=== PATIENT | female | born 1955 | race Caucasian/White ===

== ENCOUNTER → 2022-05-18 12:51 | Outpatient (BNVA) | payer MEDICARE, BC, SELFPAY | PROVIDERS: Referring Provider Family Medicine; Visit Provider Specialist | DX: R41.3 Other amnesia (principal); F07.81 Postconcussional syndrome; G93.40 Encephalopathy, unspecified | CPT/HCPCS: 99204; 99205 ==

== ENCOUNTER 2022-05-24 17:09 | Emergency (ER) | payer MEDICARE, BC, SELFPAY ==
[2022-05-24 17:20] VITALS: BP 135/86; PULSE 81; RESP 20; TEMP 37; O2SAT 96; BMI 19.3
--- NOTE | 2022-05-24 17:57 | CTR_ITS ---
PROCEDURE INFORMATION: Exam: CT Head Without Contrast Exam date and time: 05/24/2022 6:14 PM Age: 66 years old Clinical indication: Other: Uncontrolled body movement, left side weakness; Additional info: Headache, with uncontrolled body spasms, tremors. HX of concussion in the recent past TECHNIQUE: Imaging protocol: Computed tomography of the head without contrast. Radiation optimization: All CT scans at this facility use at least one of these dose optimization techniques: automated exposure control; mA and/or kV adjustment per patient size (includes targeted exams where dose is matched to clinical indication); or iterative reconstruction. COMPARISON: CT head wo con* [id number] 12/11/2021 4:31 PM RADIATION DOSE METRICS: Total DLP (mGy-cm): 721.48 FINDINGS: Brain: Normal. No hemorrhage. Unremarkable white matter. No mass effect. Cerebral ventricles: No ventriculomegaly. Paranasal sinuses: Visualized sinuses are unremarkable. No fluid levels. Mastoid air cells: Visualized mastoid air cells are well aerated. Bones/joints: Unremarkable. No acute fracture. Soft tissues: Unremarkable. CT/CT head wo con* [id number] IMPRESSION: No acute intracranial abnormality.
--- NOTE | 2022-05-24 17:57 | XRR_ITS ---
PROCEDURE INFORMATION: Exam: XR Chest Exam date and time: 05/24/2022 6:03 PM Age: 66 years old Clinical indication: Other: AMS; Additional info: Dizzy TECHNIQUE: Imaging protocol: Radiologic exam of the chest. Views: 1 view. COMPARISON: No relevant prior studies available. FINDINGS: Lungs: Unremarkable. No consolidation. Pleural spaces: Unremarkable. No pleural effusion. No pneumothorax. Heart/Mediastinum: Unremarkable. No cardiomegaly. Bones/joints: Unremarkable. XR/XR chest 1V portable [id number] IMPRESSION: No acute findings.
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
--- NOTE | 2022-05-24 18:26 | ECG_ITS ---
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 Measurements Intervals [place] Rate: 94 P: 89 MD: 137 QRS: 77 QRSD: 82 T: 79 QT: 338 QTc: 423 Interpretive Statements SINUS RHYTHM RIGHT ATRIAL ENLARGEMENT [0.3mV P-WAVE] POSSIBLE LEFT ATRIAL ENLARGEMENT [-0.1mV P-WAVE IN V1/V2] No previous ECG available for comparison Electronically Signed On 05-24-2022 21:31:01 CDT by Howie Dominguez M.D. [id number]
[2022-05-24] MEDS: sodium chloride 0.9% 1,000 ML 999 ML IV (18:33)
[2022-05-24] MEDS: metoclopramide 5 mg/mL SDV 2 mL 10 MG IVP (18:34)
[2022-05-24] MEDS: diphenhydrAMINE 50 mg/mL SDV 1mL IVP (18:34)
[2022-05-24] MEDS: LORazepam 1 mg Tablet PO (18:41)
[2022-05-24 18:43] LABS: Basophils # 0.1 10^3/uL (0.0-0.1); Basophils % 0.6 %; Eosinophils % 0.4 %; Hematocrit 46.7 % (37.0-47.0); Hemoglobin 15.2 g/dL (11.5-15.3); Lymphocytes # 3.1 10^3/uL (0.8-4.8); Lymphocytes % 27.7 %; Mean Corpuscular HGB Conc 32.5 g/dL (30.0-36.0); Mean Corpuscular Hemoglobin 28.1 pg (28.0-34.0); Mean Corpuscular Volume 86.5 fl (81-99); Mean Platelet Volume 9.5 fL (7.4-10.4); Monocytes # 0.9 10^3/uL (0.2-0.9); Monocytes % 8.2 %; Neutrophils # 6.98 10^3/uL (1.8-7.7); Neutrophils % 62.8 %; Nucleated Red Blood Cells % 0 %; Platelet Count 285 10^3/cmm (130-400); Red Cell Distribution Width 13.4 % (12.1-15.1); White Blood Count 11.1 10^3/uL (4.0-10.0)
--- NOTE | 2022-05-24 18:52 | PC.PHAR ---
PT UNABLE TO VERIFY MEDS DO TO AMS- PATIENT HAS SCRIPTS FOR QUETIAPINE 25MG, 50MG, AND 100MG. UNSURE IF SHE TAKES 25MG OR 50MG DAILY- DOES TAKE 100MG AT BEDTIME. VERIFIED USING EXTERNAL MED LIST DO TO [facility] AND OFFICE BEING CLOSED
[2022-05-24 18:55] LABS: INR 0.87 (0.8-1.2)
--- NOTE | 2022-05-24 19:00 | PC.NURSE ---
REPORT GIVEN TO [facility].
--- NOTE | 2022-05-24 19:05 | PC.NURSE ---
Report from ELA Thomas. Pt resting quietly. No needs at this time.
[2022-05-24 19:06] VITALS: BP 126/68; PULSE 75; RESP 16; TEMP 36.6; O2SAT 94
[2022-05-24 19:06] LABS: Troponin(5th) Baseline 11 ng/L (0-10)
[2022-05-24 19:07] LABS: Alanine Aminotransferase 8 U/L (0-33); Albumin Level 4.9 g/dL (3.5-5.2); Alkaline Phosphatase 185 U/L (35-105); Anion Gap 22.5 (5-19); Aspartate Amino Transferase 17 U/L (0-32); Blood Urea Nitrogen 23 mg/dL (8-23); Calcium 11.6 mg/dL (8.5-10.5); Carbon Dioxide 25 mmol/L (22-29); Chloride 96 mmol/L (98-107); Globulin 3.6 g/dL (1.3-4.6); Glomerular Filtration Rate 32.2 mL/min (90-130); Glucose 111 mg/dL (65-115); Osmolality Calculated 292 mOsm/kg (285-295); Potassium 4.5 mmol/L (3.5-5.1); Sodium 139 mmol/L (136-145); Total Bilirubin 0.4 mg/dL (0.15-1.2); Total Protein 8.5 g/dL (6.6-8.7)
== END 2022-05-24 20:09 | disposition home or self-care (01) ==
PROVIDERS: Emergency Provider Emergency Medicine; PCP Specialist
DX: R51.9 Headache, unspecified (principal); F07.81 Postconcussional syndrome
CPT/HCPCS: 70450; 71045; 80053; 84484; 85025; 85610; 93005; 96361; 96374; 96375; 99285; J1200; J2765; J7030

== ENCOUNTER 2022-05-29 16:13 | Emergency (ER) | payer MEDICARE, BC, SELFPAY ==
[2022-05-29 17:03] VITALS: BP 130/86; PULSE 82; RESP 16; TEMP 36.8; O2SAT 99; BMI 16.6
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
[2022-05-29] MEDS: lactated ringers 1,000 ML 999 ML IV (20:27)
[2022-05-29] MEDS: ketorolac 30 mg/mL INJ 15 MG IVP (20:30)
[2022-05-29] MEDS: diphenhydrAMINE 50 mg/mL SDV 1mL 25 MG IVP (20:30)
[2022-05-29] MEDS: metoclopramide 5 mg/mL SDV 2 mL 10 MG IVP (20:31)
[2022-05-29 20:40] LABS: Basophils # 0.1 10^3/uL (0.0-0.1); Basophils % 0.7 %; Eosinophils # 0.1 10^3/uL (0.0-0.8); Eosinophils % 1.7 %; Hematocrit 46.5 % (37.0-47.0); Hemoglobin 14.9 g/dL (11.5-15.3); Lymphocytes # 2.5 10^3/uL (0.8-4.8); Lymphocytes % 30.5 %; Mean Corpuscular Hemoglobin 28.2 pg (28.0-34.0); Mean Corpuscular Volume 87.9 fl (81-99); Mean Platelet Volume 9.1 fL (7.4-10.4); Monocytes # 0.7 10^3/uL (0.2-0.9); Monocytes % 8.1 %; Neutrophils # 4.86 10^3/uL (1.8-7.7); Neutrophils % 58.9 %; Nucleated Red Blood Cells % 0 %; Platelet Count 301 10^3/cmm (130-400); Red Blood Count 5.29 10^6/uL (4.1-5.3); Red Cell Distribution Width 13.9 % (12.1-15.1); White Blood Count 8.3 10^3/uL (4.0-10.0)
[2022-05-29 20:54] LABS: Erythrocyte Sedimentation Rate 14 mm/hr (0-15)
[2022-05-29 21:04] LABS: Alanine Aminotransferase 9 U/L (0-33); Albumin Level 4.4 g/dL (3.5-5.2); Alkaline Phosphatase 142 U/L (35-105); Anion Gap 17.1 (5-19); Aspartate Amino Transferase 21 U/L (0-32); Blood Urea Nitrogen 27 mg/dL (8-23); Calcium 9.7 mg/dL (8.5-10.5); Carbon Dioxide 26 mmol/L (22-29); Chloride 99 mmol/L (98-107); Globulin 3.2 g/dL (1.3-4.6); Glomerular Filtration Rate 37.5 mL/min (90-130); Glucose 92 mg/dL (65-115); Magnesium 2.1 mg/dL (1.7-2.3); Osmolality Calculated 291 mOsm/kg (285-295); Potassium 4.1 mmol/L (3.5-5.1); Sodium 138 mmol/L (136-145); Total Bilirubin 0.3 mg/dL (0.15-1.2); Total Protein 7.6 g/dL (6.6-8.7)
[2022-05-29 21:07] VITALS: BP 158/59; PULSE 70; RESP 22; O2SAT 26
[2022-05-29 21:30] VITALS: BP 171/64; PULSE 66; RESP 20; O2SAT 100
[2022-05-29 21:36] LABS: Add Urine Microscopic? NO; Charge for UA Resulting for Rev
[2022-05-29 21:45] LABS: Bilirubin Urine Neg (Negative); Blood Urine Neg (Negative); Glucose Urine UA Norm (Normal); Ketones Urine Negative (Negative); Leukocyte Esterase Urine Negative (Negative); Nitrate Urine Negative (Negative); Protein Urine Neg (Negative); Specific Gravity, Urine 1.015 (1.005-1.030); Urine Appearance Clear (CLEAR); Urine Color Yellow (Yellow); Urobilinogen Urine Neg (Negative); pH Urine 6 (5-7)
[2022-05-29 22:27] VITALS: BP 171/64; PULSE 66; RESP 20; O2SAT 100
== END 2022-05-29 22:30 | disposition home or self-care (01) ==
PROVIDERS: Emergency Provider Emergency Medicine; PCP Specialist
DX: R56.9 Unspecified convulsions (principal); R51.9 Headache, unspecified
CPT/HCPCS: 80053; 81003; 83735; 85025; 85651; 86140; 96374; 96375; 99284; J1200; J1885; J2765

== ENCOUNTER → 2022-06-07 09:31 | Outpatient (BNVA) | payer MEDICARE, BC, SELFPAY | PROVIDERS: PCP Family Medicine; Referring Provider Specialist; Visit Provider Specialist | DX: G93.40 Encephalopathy, unspecified (principal); F07.81 Postconcussional syndrome | CPT/HCPCS: 95816 ==

== ENCOUNTER → 2022-06-22 09:47 | Outpatient (BNVA) | payer MEDICARE, BC, SELFPAY | PROVIDERS: PCP Family Medicine; Visit Provider Specialist | DX: F07.81 Postconcussional syndrome (principal); F03.90 Unspecified dementia, unspecified severity, without behavioral disturbance, psychotic disturbance, mood disturbance, and anxiety | CPT/HCPCS: 96116; 99214; 99215 ==

== ENCOUNTER 2022-07-12 10:15 | Outpatient (CLI) | payer MEDICARE, BC, SELFPAY ==
--- NOTE | 2022-07-12 11:00 | MR_ITS ---
WS: [id number] MRI BRAIN WITH AND WITHOUT CONTRAST HISTORY: R41.9 - Unspecified symptoms and signs involving cognitive decline. Diminished reflexes. COMPARISON: CT head 05/24/2022 TECHNIQUE: Multiplanar imaging performed through the brain with MultiHance 10 ml's IV. No acute infarcts are seen. Desai-white matter differentiation is well preserved. Numerous T2 and FLAI R signal hyperintensities in the subcortical white matter. These involve the frontal, temporal and pa rietal lobes. No prior infarct. No volume loss in the cerebellum or T2-weighted lesions. No susceptibility artifacts or prior lacunar infarcts. Ventricles and extra-axial spaces are normal. Clivus and pituitary gland are normal. Visualized posterior fossa and brainstem are also normal. Postcontrast images are negative for masses or vascular malformations. Small caliber but patent RIGHT vertebral artery. Dural venous sinuses are normal. Paranasal sinuses: Well aerated with no significant disease. Mastoid air cells: Normal. Calvarium and scalp: Normal. MR/MR head wo/w con [id number] IMPRESSION: 1. No acute infarct or hemorrhage. 2. Mild to moderate T2 and FLAIR signal hyperintensities in the subcortical wh ite matter. Most typical distribution of small vessel ischemic disease. 3. No infarct. 4. No enhancing mass or vascular malformation.
[2022-07-12] MEDS: gadobenate dimeglumine 20 mL vial IV (11:32)
== END 2022-07-12 10:16 | disposition home or self-care (01) ==
LOC: RAD 10:16
PROVIDERS: PCP Family Medicine; Visit Provider Specialist
DX: R41.3 Other amnesia (principal); R41.9 Unspecified symptoms and signs involving cognitive functions and awareness; R93.0 Abnormal findings on diagnostic imaging of skull and head, not elsewhere classified
CPT/HCPCS: 70553

== ENCOUNTER 2022-10-17 12:21 | Inpatient (IN) | payer MEDICARE, BC, SELFPAY ==
[2022-10-17] VITALS (7 sets, daily range): BP systolic 94–163; BP diastolic 60–79; PULSE 75–88; RESP 15–16; TEMP 36.6–36.9; O2SAT 94–100; BMI 19.3
--- NOTE | 2022-10-17 14:12 | CT_ITS ---
WS: [id number] CT HEAD TECHNIQUE: Noncontrast CT of the head obtained from the skullbase to the vertex. CLINICAL INFORMATION: fall, laceration, ams COMPARISON: CT May 24, 2022. MRI July 12, 2022 DLP: 924.[address] scans at [facility] use at least one of these dose optimization techniques: automated e xposure control; mA and/or kV adjustment per patient size (includes targeted exams where dose is matc hed to clinical indication); or iterative reconstruction. FINDINGS: No evidence of intracranial hemorrhage or mass effect. Ventricular system and basal cisterns are gomez nt. Mild small vessel changes with moderate parenchymal volume loss. No extra-axial fluid collections . Vascular calcification. Fluid in the LEFT maxillary sinus. Mastoid air cells well aerated. Soft tissue laceration RIGHT front oparietal. No underlying calvarial fractures. CT/CT head wo con* [id number] IMPRESSION: 1. No evidence of intracranial hemorrhage or mass effect. 2. Mild small vessel changes. Moderate parenchymal volume loss. 3. LEFT maxillary sinusitis. 4. No acute intracranial findings.
--- NOTE | 2022-10-17 14:13 | XR_ITS ---
WS: [id number] Exam: XR chest 1V portable [id number] Date/Time of Exam: 10/17/2022 2:17 PM Reason For Exam: ams Comparison 05/24/2022. The lungs are clear and fully inflated. Normal cardiomediastinal silhouette. Small hiatal hernia. No pleural effusions. Unremarkable regional bony elements. XR/XR chest 1V portable [id number] IMPRESSION: 1. No acute cardiopulmonary process.
[2022-10-17 15:13] LABS: Basophils % 0.3 %; Eosinophils % 0.1 %; Hematocrit 37.3 % (37.0-47.0); Hemoglobin 11.9 g/dL (11.5-15.3); Lymphocytes # 1.4 10^3/uL (0.8-4.8); Lymphocytes % 13.9 %; Mean Corpuscular HGB Conc 31.9 g/dL (30.0-36.0); Mean Corpuscular Hemoglobin 32.1 pg (28.0-34.0); Mean Corpuscular Volume 100.5 fl (81-99); Mean Platelet Volume 8.5 fL (7.4-10.4); Monocytes # 0.9 10^3/uL (0.2-0.9); Monocytes % 8.5 %; Neutrophils # 7.91 10^3/uL (1.8-7.7); Neutrophils % 76.5 %; Nucleated Red Blood Cells % 0 %; Platelet Count 303 10^3/cmm (130-400); Red Blood Count 3.71 10^6/uL (4.1-5.3); Red Cell Distribution Width 13.4 % (12.1-15.1); White Blood Count 10.3 10^3/uL (4.0-10.0)
[2022-10-17 15:33] LABS: Alanine Aminotransferase 18 U/L (0-33); Albumin Level 4.7 g/dL (3.5-5.2); Alkaline Phosphatase 120 U/L (35-105); Anion Gap 22.1 (5-19); Aspartate Amino Transferase 36 U/L (0-32); Blood Urea Nitrogen 67 mg/dL (8-23); Calcium 9.6 mg/dL (8.5-10.5); Carbon Dioxide 22 mmol/L (22-29); Chloride 89 mmol/L (98-107); Glomerular Filtration Rate 9.5 mL/min (90-130); Glucose 114 mg/dL (65-115); Osmolality Calculated 288 mOsm/kg (285-295); Potassium 4.1 mmol/L (3.5-5.1); Sodium 129 mmol/L (136-145); Total Bilirubin 0.3 mg/dL (0.15-1.2); Total Protein 7.7 g/dL (6.6-8.7)
--- NOTE | 2022-10-17 15:36 | ECG_ITS ---
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 Measurements Intervals [place] Rate: 72 P: 82 IA: 156 QRS: 64 QRSD: 91 T: 53 QT: 400 QTc: 439 Interpretive Statements SINUS RHYTHM Compared to ECG 05/24/2022 18:26:59 Atrial abnormality no longer present Electronically Signed On 10-18-2022 7:40:20 HSE COORDINATOR by Howie Dominguez M.D. [id number]
--- NOTE | 2022-10-17 15:37 | ED_ITS ---
HPI - Altered Mental Status General: Chief Complaint: Altered Mental Status Stated Complaint: weakness/head lac Time Seen by Provider: 10/17/22 15:31 [facility]: Medical History Postconcussive syndrome Social History Smoking and tobacco status: never smoked Course Vital Signs: Vital signs: Vital Signs Temperature 97.9 F 10/17/22 12:51 Pulse Rate 75 10/17/22 12:51 Respiratory Rate 16 10/17/22 12:51 Blood Pressure 163/69 10/17/22 12:51 Pulse Oximetry 96 10/17/22 12:51 Oxygen Delivery Me thod 10/17/22 12:51 MDM - Altered Mental Status Lab Data 10/17/22 15:04 10/17/22 15:[address] 10/17/22 14:12 IMPRESSION: 1. No evidence of intracranial hemorrhage or mass effect. 2. Mild small vessel changes. Moderate parenchymal volume loss. 3. LEFT maxillary sinusitis. 4. No acute intracranial findings. Chest X-Ray 10/17/22 14:13 IMPRESSION: 1. No acute cardiopulmonary process. Laboratory Results WBC 10.3 10^3/uL (4.0-10.0) H 10/17/22 15:04 RBC 3.71 10^6/uL (4.1-5.3) L 10/17/22 15:04 Hgb 11.9 g/dL (11.5-15.3) 10/17/22 15:04 Hct 37.3 % (37.0-47.0) 10/17/22 15:04 MCV 100.5 fl (81-99) H 10/17/22 15:04 MCH 32.1 pg (28.0-34.0) 10/17/22 15:04 MCHC 31.9 g/dL (30.0-36.0) 10/17/22 15:04 RDW 13.4 % (12.1-15.1) 10/17/22 15:04 Plt Count 303 10^3/cmm (130-400) 10/17/22 15:04 MPV 8.5 fL (7.4-10.4) 10/17/22 15:04 Neut % (Auto) 76.5 % 10/17/22 15:04 Lymph % (Auto) 13.9 % 10/17/22 15:04 [place] % (Auto) 8.5 % 10/17/22 15:04 Eos % (Auto) 0.1 % 10/17/22 15:04 Baso % (Auto) 0.3 % 10/17/22 15:04 Neut # (Auto) 7.91 10^3/uL (1.8-7.7) H 10/17/22 15:04 Lymph # (Auto) 1.4 10^3/uL (0.8-4.8) 10/17/22 15:04 [place] # (Auto) 0.9 10^3/uL (0.2-0.9) 10/17/22 15:04 Eos # (Auto) 0.0 10^3/uL (0.0-0.8) 10/17/22 15:04 Baso # (Auto) 0.0 10^3/uL (0.0-0.1) 10/17/22 15:04 Nucleated RBC % (auto) 0 % 10/17/22 15:04 Nucleated RBCs # 0.0 /100WBC 10/17/22 15:04 Sodium 129 mmol/L (136-145) L 10/17/22 15:04 Potassium 4.1 mmol/L (3.5-5.1) 10/17/22 15:04 Chloride 89 mmol/L (98-107) L 10/17/22 15:04 Carbon Dioxide 22 mmol/L (22-29) 10/17/22 15:04 Anion Gap 22.1 (5-19) H 10/17/22 15:04 BUN 67 mg/dL (8-23) H 10/17/22 15:04 Creatinine 4.6 mg/dL (0.5-0.9) H 10/17/22 15:04 GFR Calculation 9.5 mL/min (90-130) L 10/17/22 15:04 Glucose 114 mg/dL (65-115) 10/17/22 15:04 Calculated Osmolality 288 mOsm/kg (285-295) 10/17/22 15:04 Calcium 9.6 mg/dL (8.5-10.5) 10/17/22 15:04 Total Bilirubin 0.3 mg/dL (0.15-1.2) 10/17/22 15:04 AST 36 U/L (0-32) H 10/17/22 15:04 ALT 18 U/L (0-33) 10/17/22 15:04 Alkaline Phosphatase 120 U/L (35-105) H 10/17/22 15:04 Total Protein 7.7 g/dL (6.6-8.7) 10/17/22 15:04 Albumin 4.7 g/dL (3.5-5.2) 10/17/22 15:04 Globulin 3.0 g/dL (1.3-4.6) 10/17/22 15:04 Discharge Plan Discharge Condition: Stable Prescriptions: No Action cetirizine 10 mg capsule 10 mg PO DAILY PRN metoprolol succinate 50 mg tablet extended release 24 hr 50 mg PO DAILY quetiapine [Seroquel] 100 mg tablet 100 mg PO BEDTIME alprazolam [Xanax] 0.5 mg tablet 0.5 mg PO DAILY donepezil 10 mg tablet 10 mg PO BEDTIME spironolacton-hydrochlorothiaz 25-25 mg tablet 1 tab PO DAILY hydroxyzine pamoate 50 mg capsule 50 mg PO Q6H PRN (Reason: Anxiety) levothyroxine 75 mcg tablet 75 mcg PO DAILY cyanocobalamin (vitamin B-12) 1,000 mcg/mL solution 1,000 mcg SUBCUT Q30D Premarin 0.625 mg tablet 0.625 mg PO DAILY folic acid 1 mg tablet 1 mg PO DAILY zaleplon 5 mg capsule 5 mg PO BEDTIME PRN (Reason: Sleep) Lamictal 200 mg tablet 200 mg PO BID Qty: 60 0RF Referrals: Cheikh Obando MD [Primary Care Provider] - Coding Level of Care Code ED Bike Shop Manager for Dilshad Schmidt
--- NOTE | 2022-10-17 15:43 | W.ED.GENADLT ---
HPI - General Adult General: Chief complaint: Altered Mental Status Stated complaint: weakness/head lac Time Seen by Provider: 10/17/22 15:31 Source: patient Mode of arrival: ambulatory History of Present Illness: 59-year-old female presents emergency room altered mental status. Patient is agitated and irritable family states she had a close head injury a year ago where the door hit her in the head when it swung open and she is still trying to recover from this head injury. She fell sometime last week unsure of the day and then fell early again this morning. She has a wound on her head but it is caked in blood and initially I am unable to evaluate it because of the dried blood coating the hair. Patient states she was at [facility] last week and they did not do an evaluation on the family at the bedside disputes this. Reviewed Dr. Perkins's notes he thinks he may have a frontotemporal dementia. EEG done previously was unremarkable. Onset (ago): day(s) Location: head Severity: moderate Relieving factors: none Exacerbating factors: none Associated symptoms: Reports confusion; Deny chest pain, cough, diaphoresis, decreased appetite, dyspnea, fevers/chills, headache(s), malaise, nausea, rash, palpitations, seizures, short of breath, syncope, vomiting or weakness Treatments prior to arrival: none Review of Systems Const: Denies: fever(s), chills, fatigue, malaise or diaphoresis ENMT: Denies: throat pain, ear or mastoid pain, nasal discharge or nasal congestion Card: Denies: chest pain, palpitations or syncope Resp: Denies: dyspnea GI: Denies: abdominal pain, nausea or vomiting : Denies: flank pain, difficulty voiding, dysuria, urinary frequency or urinary urgency Skin/Breast: Denies: rash Neuro: Reports: confusion; Denies: headache(s) PFSH ED PFSH: Medical History Postconcussive syndrome Social History Smoking and tobacco status: never smoked Physical Exam Const: GENERAL APPEARANCE: cooperative and comfortable ORIENTATION/CONSCIOUSNESS: Yes awake HENMT: COMMON NORMALS: normocephalic, hearing grossly normal bilaterally, external ears normal, EAC's normal, TM's normal bilaterally, Normal nasal mucous membranes and turbinates present, moist oral mucous membranes and oropharynx normal HEAD & SCALP: normocephalic NOSE: Normal nasal mucous membranes and turbinates present EXTERNAL EAR: Yes external ears normal EXTERNAL AUDITORY CANAL: EAC's normal TYMPANIC MEMBRANE: TM's normal bilaterally Neck/C-Spine: COMMON NORMALS: full ROM, no lymphadenopathy, supple and no JVD Resp: COMMON NORMALS: normal respiratory effort, No retractions, No use of accessory muscles and clear to auscultation bilaterally AUSCULTATION: clear to auscultation bilaterally Cardio: COMMON NORMALS: no JVD, regular rate, regular rhythm and No murmurs present (Cardio) RATE: regular rate RHYTHM: regular rhythm GI: COMMON NORMALS: Soft to palpation and No hepatosplenomegaly present AUSCULTATION: Yes normoactive bowel sounds PALPATION: Yes Soft to palpation, No Tenderness to palpation present (GI), No Guarding due to palpation present (GI) and Yes No hepatosplenomegaly present Extremity: COMMON NORMALS: normal to inspection, capillary refill normal, no clubbing, cyanosis or edema, no calf tenderness and no pedal edema Skin: COMMON NORMALS: no rashes or lesions noted GENERAL SKIN EXAM: no rashes or lesions noted Procedures Laceration Laceration 1: Site: scalp Side (If applicable): right Size (cm): 12.5 Description: linear Depth: simple, single layer Pre-repair: irrigated extensively Skin layer closed with: other (Stapled) Course Vital Signs: Vital signs: Vital Signs Temperature 97.9 F 10/17/22 12:51 Pulse Rate 81 10/17/22 16:00 Respiratory Rate 16 10/17/22 16:00 Blood Pressure 151/79 10/17/22 16:00 Pulse Oximetry 98 10/17/22 16:00 Oxygen Delivery Me thod 10/17/22 12:51 [facility] - General Adult Medical Decision Making Head laceration cleaned irrigated and stapled loosely. I am not sure how this is it may be as little as a day or 2 or several days. It does not appear infected at this time and has not any epithelization at the edges so I suspect it is not more than 1 to 2 days. The vianney were placed somewhat loosely to allow for any drainage. Recommend that she be on Keflex p.o. 3 times daily for the next 5 days because of the delayed closure. Patient also has an acute kidney injury and altered mental status. She is mildly hyponatremic as well will admit discussed with hospitalist. She has a mild anion gap of 22.2 Medical Records I reviewed the patient's medical records. Lab Data I reviewed the patient's lab results. 10/17/22 15:04 10/17/22 15:[address] 10/17/22 14:12 IMPRESSION: 1. No evidence of intracranial hemorrhage or mass effect. 2. Mild small vessel changes. Moderate parenchymal volume loss. 3. LEFT maxillary sinusitis. 4. No acute intracranial findings. Chest X-Ray 10/17/22 14:13 IMPRESSION: 1. No acute cardiopulmonary process. Laboratory Results WBC 10.3 10^3/uL (4.0-10.0) H 10/17/22 15:04 RBC 3.71 10^6/uL (4.1-5.3) L 10/17/22 15:04 Hgb 11.9 g/dL (11.5-15.3) 10/17/22 15:04 Hct 37.3 % (37.0-47.0) 10/17/22 15:04 MCV 100.5 fl (81-99) H 10/17/22 15:04 MCH 32.1 pg (28.0-34.0) 10/17/22 15:04 MCHC 31.9 g/dL (30.0-36.0) 10/17/22 15:04 RDW 13.4 % (12.1-15.1) 10/17/22 15:04 Plt Count 303 10^3/cmm (130-400) 10/17/22 15:04 MPV 8.5 fL (7.4-10.4) 10/17/22 15:04 Neut % (Auto) 76.5 % 10/17/22 15:04 Lymph % (Auto) 13.9 % 10/17/22 15:04 [place] % (Auto) 8.5 % 10/17/22 15:04 Eos % (Auto) 0.1 % 10/17/22 15:04 Baso % (Auto) 0.3 % 10/17/22 15:04 Neut # (Auto) 7.91 10^3/uL (1.8-7.7) H 10/17/22 15:04 Lymph # (Auto) 1.4 10^3/uL (0.8-4.8) 10/17/22 15:04 [place] # (Auto) 0.9 10^3/uL (0.2-0.9) 10/17/22 15:04 Eos # (Auto) 0.0 10^3/uL (0.0-0.8) 10/17/22 15:04 Baso # (Auto) 0.0 10^3/uL (0.0-0.1) 10/17/22 15:04 Nucleated RBC % (auto) 0 % 10/17/22 15:04 Nucleated RBCs # 0.0 /100WBC 10/17/22 15:04 Sodium 129 mmol/L (136-145) L 10/17/22 15:04 Potassium 4.1 mmol/L (3.5-5.1) 10/17/22 15:04 Chloride 89 mmol/L (98-107) L 10/17/22 15:04 Carbon Dioxide 22 mmol/L (22-29) 10/17/22 15:04 Anion Gap 22.1 (5-19) H 10/17/22 15:04 BUN 67 mg/dL (8-23) H 10/17/22 15:04 Creatinine 4.6 mg/dL (0.5-0.9) H 10/17/22 15:04 GFR Calculation 9.5 mL/min (90-130) L 10/17/22 15:04 Glucose 114 mg/dL (65-115) 10/17/22 15:04 Calculated Osmolality 288 mOsm/kg (285-295) 10/17/22 15:04 Calcium 9.6 mg/dL (8.5-10.5) 10/17/22 15:04 Total Bilirubin 0.3 mg/dL (0.15-1.2) 10/17/22 15:04 AST 36 U/L (0-32) H 10/17/22 15:04 ALT 18 U/L (0-33) 10/17/22 15:04 Alkaline Phosphatase 120 U/L (35-105) H 10/17/22 15:04 Total Protein 7.7 g/dL (6.6-8.7) 10/17/22 15:04 Albumin 4.7 g/dL (3.5-5.2) 10/17/22 15:04 Globulin 3.0 g/dL (1.3-4.6) 10/17/22 15:04 Urine Color Yellow (Yellow) 10/17/22 15:30 Urine Appearance Clear (CLEAR) 10/17/22 15:30 Urine pH 5 (5-7) 10/17/22 15:30 Ur Specific [place] 1.025 (1.005-1.030) 10/17/22 15:30 Urine Protein Trace (Negative) 10/17/22 15:30 Urine Glucose (UA) Norm (Normal) 10/17/22 15:30 Urine Ketones 1+ (Negative) H 10/17/22 15:30 Urine Blood 2+ (Negative) H 10/17/22 15:30 Urine Nitrate Negative (Negative) 10/17/22 15:30 Urine Bilirubin 1+ (Negative) H 10/17/22 15:30 Urine Urobilinogen Norm mg/dL (Negative) 10/17/22 15:30 Ur Leukocyte Esterase Negative (Negative) 10/17/22 15:30 Urine RBC 0-4 /hpf (0-2) H 10/17/22 15:30 Urine WBC 5-10 /hpf (0-5) H 10/17/22 15:30 Ur Squamous Epith Cells 10-15 /hpf (0-5) H 10/17/22 15:30 Amorphous Sediment Not Reportable 10/17/22 15:30 Urine Bacteria 2+ /hpf (NONE) H 10/17/22 15:30 Discharge Plan Discharge Patient Disposition: Admitted As Inpatient Clinical Impression: Acute kidney injury, Frontotemporal dementia, Falls frequently, Acute hyponatremia, Laceration of head Condition: Stable Prescriptions: No Action cetirizine 10 mg capsule 10 mg PO DAILY PRN metoprolol succinate 50 mg tablet extended release 24 hr 50 mg PO DAILY quetiapine [Seroquel] 100 mg tablet 100 mg PO BEDTIME alprazolam [Xanax] 0.5 mg tablet 0.5 mg PO DAILY donepezil 10 mg tablet 10 mg PO BEDTIME spironolacton-hydrochlorothiaz 25-25 mg tablet 1 tab PO DAILY hydroxyzine pamoate 50 mg capsule 50 mg PO Q6H PRN (Reason: Anxiety) levothyroxine 75 mcg tablet 75 mcg PO DAILY cyanocobalamin (vitamin B-12) 1,000 mcg/mL solution 1,000 mcg SUBCUT Q30D Premarin 0.625 mg tablet 0.625 mg PO DAILY folic acid 1 mg tablet 1 mg PO DAILY zaleplon 5 mg capsule 5 mg PO BEDTIME PRN (Reason: Sleep) Lamictal 200 mg tablet 200 mg PO BID Qty: 60 0RF Referrals: Cheikh Obando MD [Primary Care Provider] - Coding Level of Care Code ED Extended Insurance Clerk for Chg Fwd Exam Comprehensive
[2022-10-17] MEDS: sodium chloride 0.9% 1,000 ML 999 ML IV ×2 (16:03→17:39)
[2022-10-17 16:07] LABS: Bilirubin Urine 1+ (Negative); Blood Urine 2+ (Negative); Glucose Urine UA Norm (Normal); Ketones Urine 1+ (Negative); Nitrate Urine Negative (Negative); Protein Urine Trace (Negative); Specific Gravity, Urine 1.025 (1.005-1.030); Urine Appearance Clear (CLEAR); Urine Color Yellow (Yellow); pH Urine 5 (5-7)
[2022-10-17 16:08] LABS: Add Urine Microscopic? YES; Leukocyte Esterase Urine Negative (Negative); Urobilinogen Urine Norm (Negative)
[2022-10-17 16:09] LABS: Add Urine Culture? No; Bacteria Urine 2+ /hpf; RBC Urine 0-4 /hpf (0-2)
--- NOTE | 2022-10-17 16:22 | PC.NURSE ---
HEAD LACERATION MEASURING APPROX 5CM BY 1CM CLEANED. DR. COELLO APPLIED 5 LAUREN TO WOUND.
--- NOTE | 2022-10-17 17:10 | USR_ITS ---
PROCEDURE INFORMATION: Exam: US Duplex Bilateral Extracranial Arteries, Carotid Arteries Exam date and time: 10/17/2022 5:46 PM Age: 67 years old Clinical indication: Altered mental status/memory loss and syncope and collapse; Confusion or disorientation; Patient HX: Long-term smoker, continues smoking. Fell 2021, striking her head, caused brain injury. She fell again today, ripping open scalp vianney from a fall last week. TECHNIQUE: Imaging protocol: Real-time Duplex ultrasound scan of the bilateral carotid and vertebral arteries combining montemayor scale, color Doppler and spectral waveform analysis. Bilateral exam. Exam focused on the carotid arteries. COMPARISON: CT head wo con* [id number] 10/17/2022 2:45 PM FINDINGS: Right common carotid artery: Mild plaque. No occlusion or stenosis. Waveforms are normal. Right internal carotid artery: Mild plaque. No occlusion or stenosis. Waveforms are normal. Right ICA/CCA ratio: Within normal limits. Right external carotid artery: No stenosis in the origin. Right vertebral artery: Unremarkable. Antegrade flow. Left common carotid artery: Mild plaque. No occlusion or stenosis. Waveforms are normal. Left internal carotid artery: Mild plaque. No occlusion or stenosis. Waveforms are normal. Left ICA/CCA ratio: Within normal limits. Left external carotid artery: No stenosis in the origin. Left vertebral artery: Unremarkable. Antegrade flow. Other findings: There is mild bilateral carotid bulb plaque. US/CV carotid duplex BI* [id number] IMPRESSION: 1. Less than 50% bilateral ICA stenosis (Mild stenosis). 2. Vertebral have antegrade flow. REFERENCES: SRU CRITERIA. The degree of internal carotid artery stenosis is based on criteria defined by the Society of Radiologists in Ultrasound (SRU). Normal is no stenosis. Mild is less than 50% stenosis. Moderate is 50-69% stenosis. Severe is greater than 69% stenosis to near occlusion. Near occlusion is a markedly narrowed lumen. Total occlusion is no detectable patent lumen.
--- NOTE | 2022-10-17 17:10 | USR_ITS ---
PROCEDURE INFORMATION: Exam: US Retroperitoneal; Complete; Kidneys and Bladder Exam date and time: 10/17/2022 7:02 PM Age: 67 years old Clinical indication: Other: Acute kidney injury; Prior surgery; Surgery date: 6+ months; Patient HX: Rra stenting 2011. Note that a renal doppler is also ordered, but patient is shaking so violently that i cannot do that exam at this time. ; Additional info: Shahzad TECHNIQUE: Imaging protocol: Real-time ultrasound of the retroperitoneum with image documentation. Complete exam focused on the kidneys and bladder. COMPARISON: No relevant prior studies available. FINDINGS: Right kidney: The right upper kidney shows a small 1 cm superolateral cyst. No solid renal mass or hydronephrosis. The right kidney is normal size. Left kidney: No solid renal mass or hydronephrosis is identified. The left kidney is normal size. Urinary bladder: The bladder prevoid volume is 163 cc. The postvoid volume is 26 cc. Left jet seen in bladder, right jet not seen in bladder. US/US renal BI* [id number] IMPRESSION: 1. No solid renal mass or hydronephrosis. 2. Small bladder postvoid residual.
--- NOTE | 2022-10-17 17:10 | USCV_ITS ---
Lluvia Pagan Age: 67 Gender: F : 1955 Exam Date: 10/17/2022 18:26 Ordering Phys: Herbert Crews MD Technologist: BREEZY [place] [facility] [place]: altered mental status, s/p fall with brain injury 2021. Fell again today, ripping out scalp vianney from fall last week. History of LAD cardiac stenting and RRA stenting 2011. Long-term smoker, continues smoking. Denies DM. BP: 160 / 72 HR: 185 Rhythm: Sinus Technical Quality: Adequate MEASUREMENTS (Male / Female) Normal Values 2D ECHO LV Diastolic Diameter PLAX 3.0 cm 4.2 - 5.9 / 3.9 - 5.3 cm LV Systolic Diameter PLAX 1.9 cm IVS Diastolic Thickness 1.4 cm 0.6 - 1.0 / 0.6 - 0.9 cm IVS Systolic Thickness 1.7 cm LVPW Diastolic Thickness 1.1 cm 0.6 - 1.0 / 0.6 - 0.9 cm LVPW Systolic Thickness 1.3 cm LVOT Diameter 1.6 cm LV Ejection Fraction 2D Teich 65.8 % LV Ejection Fraction MOD 2C 64.1 % LV Ejection Fraction 2C AL 67.0 % LA Diameter 2.7 cm LA Width 3.1 cm LA Height 4.2 cm RA Width 2.3 cm RA Height 3.3 cm Aorta at Sinotubular Diameter 2.5 cm IVC Diameter 1.7 cm M-MODE Aortic Annulus Diameter 2.7 cm LA Ao Ratio MM 1.0 MV E Point Septal Separation 0.2 cm DOPPLER AV Peak Velocity 99.0 cm/s LVOT Peak Velocity 94.0 cm/s AV Area Cont Eq vti 2.1 cm squared AV Area Cont Eq pk 1.9 cm squared MV Area PHT 4.1 cm squared Mitral E to A Ratio 1.2 MV E' Velocity 70.0 cm/s Mitral E to MV E' Ratio 10.6 Mitral E to LV E' Lateral Ratio 8.8 Mitral E to LV E' Septal Ratio 13.2 TR Peak Velocity 255.5 cm/s TR Peak Gradient 26.1 mmHg TV Peak E Velocity 91.0 cm/s Right Atrial Pressure 5.0 mmHg Pulmonary Artery Systolic Pressu 31.1 mmHg PV Peak Velocity 78.0 cm/s RV Acceleration Time 0.1 s RV Ejection Time 0.4 s RV AcT/ET 0.3 FINDINGS Left Ventricle Left ventricle is normal in size. LV systolic function is normal with EF 55 to 60%. No regional wall motion abnormalities are seen. Right Ventricle LV size and function Right Atrium Normal in size Left Atrium Normal in size Mitral Valve Structurally normal mitral valve. Mild mitral regurgitation. Aortic Valve Aortic valve is thickened. No significant stenosis or regurgitation. Tricuspid Valve Mild tricuspid regurgitation. Pulmonary artery systolic pressure is normal Pulmonic Valve Not well visualized. Pericardium Normal Aorta Normal in size IVC Appears to be normal CONCLUSIONS LV systolic function is normal with EF of 55 to 60% Mild mitral regurgitation Mild tricuspid regurgitation No comparison studies are available Howie Dominguez MD (Electronically Signed) Final Date: 18 October 2022 14:45 S
--- NOTE | 2022-10-17 17:11 | P.HP_ITS ---
Providers/Chief Complaint Primary Care Provider: Cheikh Obando MD Chief Complaint: weakness/head lac History of Present Illness Lluvia Pagan is a 67 year old female with a past medical history of CAD status post 2 stents to LAD, history of right renal stent, history of hypertension, hypothyroidism, postconcussion syndrome, history of frontotemporal dementia, is on multiple psychotropic medications, who presents to [facility] for syncopal episodes, fall, lightheadedness, confusion. Patient tells me that roughly a year ago, she had a significant fall, head trauma, since then and being diagnosed with postconcussion syndrome, she cognitive complaints, encephalopathy, agitation, confusion was seen by neurology, EEG within normal limits placed on Lamictal in addition to other medications. She tells me that in the last 2 weeks, she has had 3 significant falls, one significant fall roughly 2 weeks ago one significant fall on , when she fell, and significant right-sided head trauma, she saw her primary care provider, she had bleeding from a superficial laceration, right temporal region, she also had a fall this morning. She tells me that the nature of these falls is just before she falls she will feel lightheaded, feel dizzy, no vertigo, she will get tunnel vision, she will lose consciousness for the first 2 falls and she is passed out, this last fall she did not. Denies any chest pain any palpitations, no nausea, no vomiting her was noticed the last presyncopal syncopal episode and d id not see any seizure like episodes, no strokelike symptoms. No facial no slurring of words. She also tells me that what is new is her tremor, she has tremors of her bilateral upper extremity. She her to person, to place, not to time, she follows commands, she feels her feels in terms of her mentation she does have cognitive deficiencies after her postconcussion syndrome, but she is relatively at baseline. Denies any dysuria, hematuria, Review of Systems Const: Denies: fever(s), chills, fatigue or malaise Eyes: Denies: change in vision or blurry vision Card: Denies: chest pain or palpitations Resp: Denies: dyspnea, productive cough, non-productive cough or wheezing GI: Denies: abdominal pain, nausea, vomiting or melena Musc: Denies: neck pain or back pain Skin/Breast: Denies: rash Neuro: Denies: headache(s) or vertigo Psych: Denies: anxiety Endo: Denies: polyuria or polydipsia Medications/Allergies Home Medications Medication Instructions Recorded Confirmed Last Taken Type alprazolam 0.5 mg tablet (Xanax) 0.5 mg PO DAILY 05/18/22 10/17/22 10/16/22 History metoprolol succinate 50 mg 50 mg PO DAILY 05/18/22 06/22/22 Unknown History tablet,extended release 24 hr quetiapine 100 mg tablet (Seroquel) 100 mg PO BEDTIME 05/18/22 06/22/22 Unknown History conjugated estrogens 0.625 mg 0.625 mg PO DAILY 05/24/22 10/17/22 10/16/22 History tablet (Premarin) donepezil 10 mg tablet 10 mg PO BEDTIME 05/24/22 10/17/22 10/16/22 History folic acid 1 mg tablet 1 mg PO DAILY 05/24/22 10/17/22 10/17/22 History hydroxyzine pamoate 50 mg capsule 50 mg PO Q6H PRN Anxiety 05/24/22 10/17/22 Unknown History levothyroxine 75 mcg tablet 75 mcg PO DAILY 05/24/22 06/22/22 Unknown History spironolactone 25 1 tab PO DAILY 05/24/22 06/22/22 Unknown History mg-hydrochlorothiazide 25 mg tablet zaleplon 5 mg capsule 5 mg PO BEDTIME PRN Sleep 05/24/22 06/22/22 Unknown History cetirizine 10 mg capsule 10 mg PO DAILY PRN Allergy Symptoms 06/22/22 10/17/22 Unknown History albuterol sulfate 90 mcg/actuation 2 puff inhalation QID PRN 10/17/22 10/17/22 Unknown History aerosol inhaler Shortness Of Breath lamotrigine 200 mg tablet 200 mg PO DAILY 10/17/22 10/17/22 10/17/22 History (Lamictal) ondansetron 8 mg disintegrating 8 mg PO Q8H PRN Nausea 10/17/22 10/17/22 Unknown History tablet Allergies Allergy/AdvReac Type Severity Reaction Status Date / Time codeine Allergy Unknown Unknown Verified 10/17/22 13:00 Penicillins Allergy Unknown Unknown Verified 10/17/22 13:00 Safsyql-KKG-McT Reductase Allergy Unknown Unknown Verified 10/17/22 13:00 Inhibitor promethazine [From Phenergan] Allergy Unknown Verified 10/17/22 13:00 PFSH Acute PFSH: Medical History (Updated 10/17/22 @ 17:24 by Herbert Crews MD) History of coronary artery disease History of hypertension History of hypothyroidism Postconcussive syndrome Surgical History (Updated 10/17/22 @ 17:19 by Herbert Crews MD) History of heart artery stent History of renal stent Family History (Updated 10/17/22 @ 17:19 by Herbert Crews MD) Father CAD (coronary artery disease) Social History (Updated 10/17/22 @ 17:19 by Herbert Crews MD) Smoking and tobacco status: current every day smoker Alcohol intake: never Substance/Drug Use: never Vitals/I&O/Wt Last Vital Signs Temp 97.9 F 10/17/22 12:51 Pulse 81 10/17/22 16:00 Resp 16 10/17/22 16:00 BP 151/79 10/17/22 16:00 Pulse Ox 98 10/17/22 16:00 O2 Del Method 10/17/22 12:51 Weight last 48 hrs Weight 54.431 kg Physical Exam Const: COMMON NORMALS: no acute distress ORIENTATION/CONSCIOUSNESS: Yes awake, Yes oriented to person and Yes oriented to place; not oriented to time OTHER: Tremor of bilateral upper extremity HENMT: OTHER: Right scalp, sutures in place Eye: COMMON NORMALS: Equal, round and reactive pupils present and EOMs intact bilaterally OTHER: Saccadic eye movements Neck/C-Spine: COMMON NORMALS: full ROM, no lymphadenopathy and no meningeal signs Lymph: LYMPHATIC: no lymphadenopathy noted Resp: COMMON NORMALS: normal respiratory effort, No retractions, No use of accessory muscles and clear to auscultation bilaterally AUSCULTATION: clear to auscultation bilaterally Cardio: COMMON NORMALS: regular rate, regular rhythm, S1 normal heart sound present and S2 normal heart sound present RATE: regular rate RHYTHM: regular rhythm HEART SOUNDS: S1 normal heart sound present and S2 normal heart sound present GI: COMMON NORMALS: Normal to inspection, nondistended, normoactive bowel sounds present, Soft to palpation and non-tender Extremity: COMMON NORMALS: no pedal edema Neuro: COMMON NORMALS: patient oriented x3, CN's II-XII intact bilaterally and moves all extremities OTHER: Abnormal rxslhd-hd-vjpu, bilaterally, abnormal qibp-ly-pnjn bilaterally Psych: COMMON NORMALS: mental status grossly normal Data 10/17/22 15:04 10/17/22 15:04 A&P Assessment and plan (1) Acute kidney injury: (2) Acute hyponatremia: (3) Uremia: (4) Encephalopathy acute: (5) Postconcussive syndrome: (6) Frontotemporal dementia: (7) Laceration of head: (8) Falls frequently: (9) Cerebellar ataxia: (10) Syncope: (11) Goals of care, counseling/discussion: (12) Resting tremor: Plan Syncopal episodes -Etiology unclear -Serial EKGs, serial troponins, telemetry monitoring -Cardiac echo -Carotid artery ultrasound -CT head within normal limits -Orthostatic vitals -TSH, mag -Full code -Lovenox for DVT prophylaxis Goals of care discussion she would like to be a full code Cerebellar ataxia -Patient has significant cerebellar symptoms, abnormal klvgoi-iq-ptlf, aqqe-za-onis -CT of the head within normal limits -Has had an MRI of her brain in July 04, 2022 1.? No acute infarct or hemorrhage. 2.? Mild to moderate T2 and FLAIR signal hyperintensities in the subcortical white matter. Most typical distribution of small vessel ischemic disease. 3.? No infarct. 4.? No enhancing mass or vascular malformation. -We will discuss with neurology Resting tremor/and on extension -Significantly worse on extension -Could be a benign essential tremor -Does have some parkinsonian features -We will discuss with neurology Acute kidney injury, -Etiology unclear -Renal ultrasound -Has a history of right renal stent renal ultrasound with Doppler -IV hydration -CPK -Monitor kidney function Uremia, monitor Hyponatremia, IV fluids, monitor, neurochecks, monitor mentation Acute encephalopathy -It is difficult for me to assess her baseline level of functioning but she does have some degree according to her postconcussion symptoms, due to some degree of forgetfulness, frontotemporal dementia -Potentially worsening mentation from hyponatremia, uremia, potentially her falls -We will have to monitor her CAD, no chest pain complaints, monitor, serial EKGs, troponins, telemetry monitoring Multiple psychotropic medications for frontotemporal dementia, check Lamictal level Attestations Medical Necessity Statement*: Patient requires hospitalization, outpatient with observation, or for CHAYO, uremia, hyponatremia, cerebellar ataxia, syncope Coding Level of Care Code Acute Code for Chg Fwd Diagnoses Acute kidney injury N17.9 Acute hyponatremia E87.1 Uremia N19 Encephalopathy acute G93.40 Postconcussive syndrome F07.81 Frontotemporal dementia G31.09; F02.80 Laceration of head S01.91XA Falls frequently R29.6 Cerebellar ataxia G11.9 Syncope R55 Goals of care, counseling/discussion Z71.89 Resting tremor G25.2
[2022-10-17 17:27] LABS: Creatine Phosphokinase 578 U/L (26-192)
[2022-10-17] MEDS: pantoprazole 40 mg SDV IVP (17:39)
[2022-10-17] MEDS: sodium chloride 0.9% 1,000 ML 125 ML IV (17:40)
[2022-10-17] MEDS: lamoTRIgine 100 mg Tablet 200 MG PO (17:45)
[2022-10-17] MEDS: enoxaparin 40 mg/0.4 mL Syringe SUBCUT (17:45)
[2022-10-17 17:50] LABS: CKMB 12.9 ng/mL (0-5.34); CKMB Relative Index 2.2 % (0.0-10.4)
[2022-10-17 18:03] LABS: Lactic Sepsis W/Reflex 0.8 mmol/L (0.5-2.2)
[2022-10-17 18:04] LABS: Troponin(5th) Baseline 24 ng/L (0-10)
[2022-10-17 18:22] LABS: NT Pro B Type Natriuretic Pept 3651 pg/mL (0-125); Procalcitonin 2.71 ng/mL (0-0.5); Thyroid Stimulating Hormone 3.67 uIU/mL (0.27-4.20); Vitamin B12 861 pg/mL (232-1245)
[2022-10-17 18:25] LABS: Folate Level 14.7 ng/mL (4.8-37.3)
[2022-10-17 18:33] LABS: Acetaminophen 18.6 ug/mL (10-30); Chol HDL Ratio 2.08 mg/dL (0.0-4.40); Cholesterol 135 mg/dL (0-200); HDL Cholesterol 65 mg/dL (60-100); LDL Cholesterol Calculated 19 mg/dL (50-129); LDL HDL Ratio 0.29 RATIO (0.00-3.22); Magnesium 2.3 mg/dL (1.7-2.3); Phosphorus 4.9 mg/dL (2.5-4.5); Triglycerides 255 mg/dL (0-150)
[2022-10-17 18:35] LABS: Alcohol Level < 10 mg/dL (0-10); Salicylate < 0.3 mg/dL (3-10)
[2022-10-17 20:47] LABS: Free T4 Free Thyroxine 1.15 ng/dL (0.82-1.77); T3 Free 1.5 PG/ML (2.0-4.4)
--- NOTE | 2022-10-17 21:31 | ECG_ITS ---
[facility] Test Date: 2022-10-17 Pat Name: Lluvia Pagan Department: Room: 251 Gender: Female Mail Superintendent: : 1955 Requested By: Herbert Crews Order Number: [id number] Dee Dee MD: Kimberley Guaman M.D. Measurements Intervals [place] Rate: 76 P: 67 [place]: 144 QRS: 77 QRSD: 98 T: 52 QT: 398 QTc: 450 Interpretive Statements SINUS RHYTHM Compared to ECG 10/17/2022 15:57:36 No significant changes Electronically Signed On 10-18-2022 7:47:54 PER DIEM CLERK by Kimberley Guaman M.D. [id number]
[2022-10-17 22:03] LABS: Troponin 5 2HR 20.43 ng/L (0-10)
[2022-10-17 22:23] LABS: Troponin 5 2HR Delta -3.57 ABS# (0-10)
[2022-10-17] MEDS: ondansetron 2 mg/ML SDV 2 mL 4 MG IVP (22:44)
--- NOTE | 2022-10-17 23:00 | PC.NURSE ---
Spoke with Lisa for pharmacy about pt ordered to get seroquel and donepezil at the same time and it was flagged for interaction. Also told her pt recieved zofran at 22:44 which was flagged for interaction with donepezil. Lisa said it was okay to administer the medications together.
[2022-10-17] MEDS: cephALEXin 500 mg Capsule PO (23:15)
[2022-10-17] MEDS: quetiapine 100 mg Tablet PO (23:15)
[2022-10-17] MEDS: donepezil 5 MG Tablet 10 MG PO (23:16)
[2022-10-17 23:51] LABS: Troponin 5 6HR 19.94 ng/L (0-10)
[2022-10-18] VITALS (16 sets, daily range): BP systolic 68–122; BP diastolic 40–74; PULSE 90–101; RESP 16–19; TEMP 36.5–36.9; O2SAT 90–97
[2022-10-18 00:36] LABS: Troponin 5 6HR Delta -4.06 ng/L (0-12)
[2022-10-18] MEDS: sodium chloride 0.9% 500 ML 999 ML IV (02:32)
[2022-10-18] MEDS: sodium chloride 0.9% 1,000 ML 125 ML IV ×3 (02:32→16:16)
[2022-10-18] MEDS: diphenhydrAMINE 25 mg Capsule PO (02:33)
--- NOTE | 2022-10-18 02:50 | PC.NURSE ---
Upon entering pt room to administer medication, pt appeared red that was blanchable. This nurse obtained vitals BP 73/43, temp 98.3 F, HR 101, O2 79%. Pt was placed on 4L NC and put in trendelenburg position. Manual BP was 68/40. This nurse called Dr. Alvarez @ 01:35 and told her the pt vitals with a new onset of low BP, pt reddness, and required oxygen. Dr. Alvarez ordered a 500 cc NS bolus and instructed to call her back with BP after the bolus was infused. Pt was weaned back down to room air with oxygen sat 96%. Manual BP after the infused bolus was 92/52. This nurse called Dr. Alvarez @ 02:20 to inform her of the BP and the pt redness, also told her pt recieved first dose of Keflex @ 23:15 on 10/17. Dr. Alvarez gave an order for 25 mg Benadryl PO x1 and gave instructions to call back in one hour with BP. Pt is in place in trendelenburg with bed alarm set.
--- NOTE | 2022-10-18 03:56 | PC.NURSE ---
This nurse contacted Dr. Alvarez via phone @ 03:29 to inform her of pt BP 94/54, 96% RA, HR 90, and pt color has returned to normal. She gave orders to hold Keflex due to a possible allergic reaction.
[2022-10-18 05:27] LABS: Basophils % 0.2 %; Eosinophils % 0.2 %; Hemoglobin 10.5 g/dL (11.5-15.3); Lymphocytes # 1.3 10^3/uL (0.8-4.8); Lymphocytes % 25.4 %; Mean Corpuscular HGB Conc 30.9 g/dL (30.0-36.0); Mean Corpuscular Volume 103.7 fl (81-99); Mean Platelet Volume 8.5 fL (7.4-10.4); Monocytes # 0.3 10^3/uL (0.2-0.9); Monocytes % 5.5 %; Neutrophils # 3.59 10^3/uL (1.8-7.7); Neutrophils % 68.5 %; Nucleated Red Blood Cells % 0 %; Platelet Count 241 10^3/cmm (130-400); Red Blood Count 3.28 10^6/uL (4.1-5.3); Red Cell Distribution Width 13.5 % (12.1-15.1); White Blood Count 5.2 10^3/uL (4.0-10.0)
[2022-10-18 05:50] LABS: Alanine Aminotransferase 15 U/L (0-33); Albumin Level 3.6 g/dL (3.5-5.2); Alkaline Phosphatase 90 U/L (35-105); Anion Gap 19.1 (5-19); Aspartate Amino Transferase 31 U/L (0-32); Blood Urea Nitrogen 52 mg/dL (8-23); Calcium 7.8 mg/dL (8.5-10.5); Carbon Dioxide 18 mmol/L (22-29); Chloride 107 mmol/L (98-107); Globulin 2.1 g/dL (1.3-4.6); Glomerular Filtration Rate 15.5 mL/min (90-130); Glucose 76 mg/dL (65-115); Osmolality Calculated 303 mOsm/kg (285-295); Potassium 4.1 mmol/L (3.5-5.1); Sodium 140 mmol/L (136-145); Total Bilirubin 0.3 mg/dL (0.15-1.2); Total Protein 5.7 g/dL (6.6-8.7)
[2022-10-18] MEDS: metoprolol succinate ER (24 HR) 50 mg Tablet PO (09:39)
[2022-10-18] MEDS: aspirin 81 mg EC Tablet PO (09:39)
[2022-10-18] MEDS: folic acid 1 mg Tablet PO (09:39)
[2022-10-18] MEDS: levothyroxine 75 mcg Tablet PO (09:39)
[2022-10-18] MEDS: ALPRAZolam 0.5 mg Tablet PO (09:39)
[2022-10-18] MEDS: lamoTRIgine 100 mg Tablet 200 MG PO ×2 (09:40→17:40)
--- NOTE | 2022-10-18 11:11 | PM.PN ---
Subjective Subjective: Patient was seen this morning, she is alert to person, to place, not to time, she follows commands according to nursing staff, she has been speaking to herself out loudly, she has been talking to herself, this morning she continues to have diffuse tremors, she complains of poor appetite, weakness, she tells me that she is quite forgetful this morning, denies any fevers, denies any chills Vitals/I&O/Wt Last Vital Signs Temp 98.5 F 10/18/22 04:00 Pulse 96 10/18/22 08:00 Resp 19 H 10/18/22 08:00 BP 104/74 10/18/22 08:00 Pulse Ox 93 10/18/22 08:00 O2 Del Method 10/18/22 04:27 O2 Flow Rate 0.5 10/18/22 04:00 10/17/22 10/18/22 10/18/22 22:59 06:59 14:59 Intake Total 1999 1740 / 3740 1151.667 / 1151.667 Balance 1999 1740 / 3740 1151.667 / 1151.667 Weight last 48 hrs Weight 54.431 kg Physical Exam Const: COMMON NORMALS: no acute distress and patient oriented x3 Resp: COMMON NORMALS: normal respiratory effort, No retractions, No use of accessory muscles and clear to auscultation bilaterally AUSCULTATION: clear to auscultation bilaterally Cardio: COMMON NORMALS: regular rate, regular rhythm, S1 normal heart sound present and S2 normal heart sound present RATE: regular rate RHYTHM: regular rhythm HEART SOUNDS: S1 normal heart sound present and S2 normal heart sound present GI: COMMON NORMALS: Normal to inspection, nondistended, normoactive bowel sounds present and non-tender Extremity: COMMON NORMALS: no pedal edema Neuro: COMMON NORMALS: patient oriented x3 Psych: COMMON NORMALS: mental status grossly normal Data 10/18/22 05:19 10/18/22 05:19 A&P Assessment and plan (1) Acute kidney injury: (2) Acute hyponatremia: (3) Uremia: (4) Encephalopathy acute: (5) Postconcussive syndrome: (6) Frontotemporal dementia: (7) Laceration of head: (8) Falls frequently: (9) Cerebellar ataxia: (10) Syncope: (11) Goals of care, counseling/discussion: (12) Resting tremor: (13) Rhabdomyolysis: Plan Syncopal episodes -Etiology unclear -Serial EKGs, serial troponins, telemetry monitoring so far unremarkable -Cardiac echo pending -Carotid artery ultrasound within normal limits -CT head within normal limits -Orthostatic vitals need to get orthostatic vitals -TSH within normal limits, mag within normal limits -Full code -Lovenox for DVT prophylaxis Goals of care discussion she would like to be a full code Cerebellar ataxia -Patient has significant cerebellar symptoms, abnormal vpsyun-ot-iang, vvst-sr-iofp -CT of the head within normal limits -Has had an MRI of her brain in July 04, 2022 1.? No acute infarct or hemorrhage. 2.? Mild to moderate T2 and FLAIR signal hyperintensities in the subcortical white matter. Most typical distribution of small vessel ischemic disease. 3.? No infarct. 4.? No enhancing mass or vascular malformation. -We will discuss with neurology Resting tremor/and on extension -Significantly worse on extension -Could be a benign essential tremor -Does have some parkinsonian features -We will discuss with neurology Acute kidney injury, -Etiology unclear, dehydration, rhabdo -Renal ultrasound within normal limits, could not stay still for ultrasound portion -IV hydration -CPK -Monitor kidney function Rhabdomyolysis, IV fluids Uremia, monitor Hyponatremia, IV fluids, monitor, neurochecks, monitor mentation Acute encephalopathy -It is difficult for me to assess her baseline level of functioning but she does have some degree according to her postconcussion symptoms, due to some degree of forgetfulness, frontotemporal dementia -Potentially worsening mentation from hyponatremia, uremia, potentially her falls -We will discuss with neurology CAD, no chest pain complaints, monitor, serial EKGs, troponins, telemetry monitoring Multiple psychotropic medications for frontotemporal dementia, check Lamictal level Attestations Medical Necessity Statement*: Patient requires hospitalization, inpatient, greater than 2 midnight, for cerebellar ataxia, syncope, CHAYO, hyponatremia, acute encephalopathy Coding Level of Care Code Acute Code for g Fwd Diagnoses Acute kidney injury N17.9 Acute hyponatremia E87.1 Uremia N19 Encephalopathy acute G93.40 Postconcussive syndrome F07.81 Frontotemporal dementia G31.09; F02.80 Laceration of head S01.91XA Falls frequently R29.6 Cerebellar ataxia G11.9 Syncope R55 Goals of care, counseling/discussion Z71.89 Resting tremor G25.2 Rhabdomyolysis M62.82
[2022-10-18 11:43] LABS: Erythrocyte Sedimentation Rate 3 mm/hr (0-15)
[2022-10-18 11:49] LABS: C Reactive Protein 48.7 mg/L (0.0-4.9)
--- NOTE | 2022-10-18 13:19 | PC.CHAP ---
Pastoral Care Encounter/Spiritual Assessment Type of Contact [] Declined computer technical specialist visit [] Patient/Family/Request visit [] Outpatient visit [] Follow-up visit [] Physician referral [] Code/Alert x[x [] Out of room [] Palliative care [] [] Receiving care in room [] Pre-surgical visit [] Trauma [] Long length of stay [] ICU visit [] Other: Relational/Emotional Strength [x] Patient feels connected with others/family/visitors/staff [] Distress [] Loneliness/isolation [] Abandonment Spirituality of Patient [x] Person of Nicole [x] Attends Taoist of their Nicole [x] Believes in Prayer [] Reads Bible or Cheondoism materials [] There are Spiritual issues to be addressed Boat Hoist Operator Helper Interventions [x] Prayer x[] Active listening [x] Non-anxious presence [] Spiritual/emotional support [] Crisis/trauma care [] Spiritual counseling [] Bereavement support [] Provided bereavement packet [] Provided Bible/devotional materials [] Provided toy/stuffed animal, coloring book to patient or family member [] Provided Communion [] Anointing/[place] [] Salvation [x] Completed spiritual assessment [] Other: Impact on Illness or Injury [] Angry [] Fearful [] Anxious [] Often cries [] Exhaustion [] Unable to work [] Unable to attend congregation [] Unable to walk/stand [] Unable to read [] Unable to drive [] Unable to eat/drink [] Unable to sleep [] Unable to be with family [] Patient intubated [] Other: Summary Time spent with patient 10 min
[2022-10-18] MEDS: cefTRIAXone 1,000 MG in sodium chloride 0.9% (plus) 50 ML 100 MG IV (13:29)
[2022-10-18 17:17] LABS: Ammonia 27 umol/L (11-51)
[2022-10-18 17:18] LABS: Ferritin 354 ng/mL (15-150)
[2022-10-18] MEDS: enoxaparin 30 mg/0.3 mL Syringe SUBCUT (17:39)
[2022-10-18] MEDS: pantoprazole 40 mg SDV IVP (17:40)
--- NOTE | 2022-10-18 17:43 | PC.NURSE ---
notified Dr. Crews of patients blood pressure 85/52. Verbal orders to give 500 bolus from Normal Saline running
[2022-10-18 17:53] LABS: HIV 1 & 2 Antibody Non-Reactive (Non-Reactiv); HIV 1 & 2 Antigen Non-Reactive (Non-Reactiv)
[2022-10-18] MEDS: donepezil 5 MG Tablet 10 MG PO (20:06)
[2022-10-18] MEDS: quetiapine 100 mg Tablet PO (20:06)
[2022-10-19] VITALS (126 sets, daily range): BP systolic 87–173; BP diastolic 56–130; PULSE 72–117; RESP 10–36; TEMP 36.6–37.1; O2SAT 80–100
[2022-10-19] MEDS: haloperidol inj 5 mg/mL INJ 1 mL 1 MG IM ×2 (01:52→03:17)
--- NOTE | 2022-10-19 02:14 | PC.NURSE ---
Patient started exhibiting some anxiety and agitation around 0100 and was up out of bed, refusing to wear oxygen and trying to remove vianney from her head, nursing staff attempted to re direct patient and was unable to, patient was starting to get physical with staff. Patient refused po xanax throwing it down on the bed. Haldol IM was ordered and administered. Patient is currently resting in bed with 3 bed rails up and bed alarm set, MAILROOM PERSONNEL at the bedside for safety.
[2022-10-19] MEDS: ziprasidone 20 mg/mL SDV 10 MG IM (03:12)
[2022-10-19] MEDS: LORazepam 2 mg/mL INJ 1 mL 1 MG IM (03:14)
[2022-10-19] MEDS: sodium chloride 0.9% 1,000 ML 125 ML IV (03:50)
[2022-10-19 04:50] LABS: Basophils % 0.2 %; Eosinophils # 0.1 10^3/uL (0.0-0.8); Eosinophils % 1.4 %; Hematocrit 28.3 % (37.0-47.0); Hemoglobin 8.5 g/dL (11.5-15.3); Lymphocytes # 0.7 10^3/uL (0.8-4.8); Lymphocytes % 17.1 %; Mean Corpuscular Volume 106.4 fl (81-99); Mean Platelet Volume 9.3 fL (7.4-10.4); Monocytes # 0.2 10^3/uL (0.2-0.9); Monocytes % 5.6 %; Neutrophils # 3.25 10^3/uL (1.8-7.7); Neutrophils % 75.2 %; Nucleated Red Blood Cells % 0 %; Platelet Count 204 10^3/cmm (130-400); Red Blood Count 2.66 10^6/uL (4.1-5.3); Red Cell Distribution Width 14.1 % (12.1-15.1); White Blood Count 4.3 10^3/uL (4.0-10.0)
[2022-10-19 05:05] LABS: Blood Urea Nitrogen 39 mg/dL (8-23); Calcium 8.2 mg/dL (8.5-10.5); Carbon Dioxide 15 mmol/L (22-29); Chloride 111 mmol/L (98-107); Glucose 69 mg/dL (65-115); Osmolality Calculated 302 mOsm/kg (285-295); Sodium 142 mmol/L (136-145)
[2022-10-19 05:13] LABS: Anion Gap 20.1 (5-19); Potassium 4.1 mmol/L (3.5-5.1)
--- NOTE | 2022-10-19 06:47 | ECG_ITS ---
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 Measurements Intervals [place] Rate: 82 P: 77 [place]: 145 QRS: 60 QRSD: 88 T: 38 QT: 368 QTc: 430 Interpretive Statements SINUS RHYTHM Compared to ECG 10/17/2022 21:31:51 No significant changes Electronically Signed On 10-19-2022 21:45:59 CHECKERING MACHINE ADJUSTER by Howie Dominguez M.D. [id number]
[2022-10-19] MEDS: FUROsemide 10 mg/mL SDV 4mL 40 MG IVP ×2 (06:50→17:04)
[2022-10-19 06:54] LABS: ABG PCO2 43.6 mmHg (35-45); Arterial Blood Gas Hematocrit 31.2 % (37-47); Base Excess ABG -12.2 mmol/L (-2.0-2.0); Blood Gas Allen Test Pos; Blood Gas Sample Site Brachial, left; Blood Gas Sample Type Arterial; Carboxyhemoglobin 0.5 %THgb (0.4-20.1); HCO3 ABG 15.8 mmol/L (22-26); HGB O2 Sat 95.6 % (95-100); Ionized Calcium Level - ABG 1.3 mmol/L (1.1-1.4); Methemoglobin 1.4 % (0.4-1.5); Oxygen Device OXY MASK; Oxygen Saturation ABG 97.5; Potassium Level - ABG 4.4 mmol/L (3.5-5.0); Total Hemoglobin 10.2 g/dL (12-16)
[2022-10-19 06:58] LABS: ABG PH Result 7.17 (7.35-7.45)
[2022-10-19] MEDS: dexmedetomidine 400 MCG in sodium chloride 0.9% (100 ml) 100 ML IV (07:02)
--- NOTE | 2022-10-19 07:05 | XR_ITS ---
WS: [id number] PORTABLE CHEST HISTORY: sob COMPARISON: 10/17/2022 Defibrillator pads are present over the chest. Hyperexpanded lungs. There is mild interstitial thickening which is new since the prior study. No ple ural effusion or pneumothorax. Cardiac size: Normal. Mediastinum/Aorta: Mild atherosclerosis aorta. No osseous abnormality seen. XR/XR chest 1V portable [id number] IMPRESSION: 1. Mild interstitial thickening probably related to fluid overload. 2. Emphysema. 3. No pneumonia.
--- NOTE | 2022-10-19 07:08 | PC.NURSE ---
Rapid Response called at 0643 for respiratory distress and deterioration. Dr. Alvarez and Dr. Crews at bedside, Zoll placed on patient at 0644, patient sinus tachycardia at 110-120. Patient continues to be confused and tachypenic at 26 respirations/minute. Oxy mask in place with supplemental O2 at 10 L/min. Blood glucose 92. Verbal order received from Dr. Crews for 40 mg IV Lasix once. Read back verbal order and administered. ICU bed assigned. Patient transported to ICU at 0710.
[2022-10-19 07:24] LABS: Glucose Point of Care 92 mg/dL (70-110)
[2022-10-19] MEDS: sodium bicarbonate 8.4% 1 mEq/mL 50mL Syr 50 MEQ IVP (07:44)
[2022-10-19 08:00] LABS: Troponin(5th) Baseline 47 ng/L (0-10)
[2022-10-19] MEDS: OLANZapine 10 mg VIAL 5 MG IM (08:02)
[2022-10-19 08:07] LABS: NT Pro B Type Natriuretic Pept 9104 pg/mL (0-125); Procalcitonin 0.69 ng/mL (0-0.5)
[2022-10-19 08:08] LABS: Hematocrit 31.5 % (37.0-47.0); Hemoglobin 9.7 g/dL (11.5-15.3)
[2022-10-19 08:13] LABS: Glucose Point of Care 77 mg/dL (70-110)
[2022-10-19 08:18] LABS: C Reactive Protein 106.2 mg/L (0.0-4.9); Magnesium 1.9 mg/dL (1.7-2.3); Phosphorus 3.2 mg/dL (2.5-4.5)
[2022-10-19 08:25] LABS: D Dimer 1.87 ug/mIFEU (0-0.59)
[2022-10-19 08:26] LABS: Lactic Sepsis W/Reflex 0.9 mmol/L (0.5-2.2)
--- NOTE | 2022-10-19 08:27 | USCV_ITS ---
Lluvia Pagan Age: 67 Gender: F : 1955 Exam Date: 10/19/2022 09:01 Ordering Phys: Herbert Crews MD Technologist: DALILA Exam Location: [facility] [place] Indication: R/O DVT HISTORY: R/O DVT PROCEDURES: Venous duplex imaging was performed in bilateral lower extremities. The following venous structures were evaluated: common femoral vein, profunda vein, proximal portion of the greater saphenous vein, superficial femoral vein, and the popliteal vein. In addition, the posterior tibial and peroneal trunk were evaluated. Bilaterally, the common femoral, superficial femoral, profunda femoral, popliteal, posterior tibial, greater saphenous veins, and the peroneal trunk were identified and interrogated in the standard fashion. These veins were found to be easily compressible with spontaneous blood flow. No evidence of insufficiency or thrombus noted. Serial compression, augmentation maneuvers, and spectral Doppler flow evaluation were performed. FINDINGS: No evidence of DVT seen in any vessel visualized at this time. CONCLUSIONS No evidence of right lower extremity DVT. No evidence of left lower extremity DVT. Benji Juárez MD (Electronically Signed) Final Date: 19 October 2022 10:42 S
[2022-10-19 08:35] LABS: Alanine Aminotransferase 20 U/L (0-33); Albumin Level 3.3 g/dL (3.5-5.2); Alkaline Phosphatase 100 U/L (35-105); Aspartate Amino Transferase 40 U/L (0-32); Globulin 2.5 g/dL (1.3-4.6); Lipase 42 U/L (13-60); Total Bilirubin 0.2 mg/dL (0.15-1.2); Total Protein 5.8 g/dL (6.6-8.7)
[2022-10-19 08:36] LABS: Iron 46 ug/dL (37-145)
[2022-10-19] MEDS: meropenem 1,000 MG in sodium chloride 0.9% (plus) 50 ML 100 MG IV ×2 (09:15→21:53)
[2022-10-19] MEDS: pantoprazole 40 mg SDV IVP ×2 (09:48→20:07)
[2022-10-19 10:07] LABS: Add Urine Microscopic? NO; Charge for UA Resulting for Rev
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
[2022-10-19 10:11] LABS: Bilirubin Urine Neg (Negative); Blood Urine Neg (Negative); Glucose Urine UA Norm (Normal); Ketones Urine 1+ (Negative); Leukocyte Esterase Urine Negative (Negative); Nitrate Urine Negative (Negative); Protein Urine Neg (Negative); Urine Appearance Clear (CLEAR); Urine Color Yellow (Yellow); Urobilinogen Urine Neg (Negative); pH Urine 5 (5-7)
[2022-10-19] MEDS: vancomycin 1,000 MG in sodium chloride 0.9% 250 ML 250 MG IV (11:09)
[2022-10-19 11:43] LABS: Troponin 5 2HR 44.92 ng/L (0-10)
[2022-10-19 11:44] LABS: Troponin 5 2HR Delta -2.08 ABS# (0-10)
--- NOTE | 2022-10-19 12:03 | ECG_ITS ---
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 Measurements Intervals [place] Rate: 73 P: 78 HI: 140 QRS: 56 QRSD: 83 T: 37 QT: 392 QTc: 435 Interpretive Statements SINUS RHYTHM POSSIBLE LEFT ATRIAL ENLARGEMENT [-0.1mV P-WAVE IN V1/V2] Compared to ECG 10/19/2022 09:35:04 No significant changes Electronically Signed On 10-19-2022 21:46:36 LOSS PREVENTION AUDITOR by Howie Dominguez M.D. [email or web address] [email or web address] Technologiesour lady of mercy [id number]
[2022-10-19 12:33] LABS: CENTROMERE B ANTIBODY <1.0 NEG AI (<1.0 NEG); JO-1 ANTIBODY <1.0 NEG AI (<1.0 NEG); RNP ANTIBODY <1.0 NEG AI (<1.0 NEG); SCL-70 ANTIBODY <1.0 NEG AI (<1.0 NEG); SJOGREN'S ANTIBODY (SS-A) <1.0 NEG AI (<1.0 NEG); SM ANTIBODY <1.0 NEG AI (<1.0 NEG); SS-B <1.0 NEG AI (<1.0 NEG)
--- NOTE | 2022-10-19 12:34 | PC.OT ---
OT TREATMENT HELD THIS DATE DUE TO CHANGE IN STATUS AND CONTINUED AGITATION PER NOTES. WILL HOLD TODAY AND ATTEMPT AGAIN TOMORROW.
[2022-10-19] MEDS: aspirin 81 mg EC Tablet PO (13:29)
[2022-10-19] MEDS: sucralfate 1 gm Tablet PO ×2 (13:29→20:07)
[2022-10-19] MEDS: lamoTRIgine 100 mg Tablet 200 MG PO ×2 (13:29→17:04)
[2022-10-19] MEDS: quetiapine 100 mg Tablet PO (13:30)
--- NOTE | 2022-10-19 13:32 | PC.SLP ---
Orders received, chart reviewed. Patient has been sedated since the rapid response earlier today. Will continue to monitor and assess patient when it is appropriate.
--- NOTE | 2022-10-19 14:30 | PC.NURSE ---
Addendum entered by Lawrence Cho RN 10/19/22 14:49: REceived patient at 0729. Rapid responsed from [employer]. Patient is speaking incoherently, yelling at and trying to pinch staff, tharashing about in bed, She forecefully pulled out multiple IVs causing skin tears where the venaguard was attached to the skin. BP: 172/99, HR: 99, SPO2: 99, RR: 28. Nurse started new IV to the Right upper arm with ultrasound guidance. Started precedex. Original Note: REceived patient at 0729. Rapid responsed from [employer]. Patient is speaking incoherently, yelling at and trying to pinch staff, tharashing about in bed, She forecefully pulled out multiple IVs causing skin tears where the venaguard was attached to the skin. BP: 172/99, HR: 99, SPO2: 99, RR: 28
[2022-10-19 14:44] LABS: COMPLEMENT, TOTAL (CH50) >60 U/mL (31-60)
--- NOTE | 2022-10-19 14:49 | PC.NURSE ---
Family is at bedside. Patient is more alert, cooperative, and able to drink.dwallow pills. Nurse gave morning PO meds that were missed due to altered mental status. Per Dr mack orders, nurse gave seroquel early in case patient is unable to swallow later tonight.
[2022-10-19 14:59] LABS: COMPLEMENT COMPONENT C3C 98 mg/dL (83-193); COMPLEMENT COMPONENT C4C 28 mg/dL (15-57)
[2022-10-19 15:10] LABS: RPR w(Moniotor) w/REFL Titer NON-REACTIVE (NON-REACTIVE)
[2022-10-19] MEDS: donepezil 5 MG Tablet 10 MG PO (17:05)
--- NOTE | 2022-10-19 17:56 | PC.NURSE ---
SHift Summary: After morning rapid response (see notes), it has been an uneventful shift Patient rested in bed throughout the day. Mental status has been variable, at best she has been cooperative, calm, and oriented to self and time. At worst she is attempting to pinch nurses, pull out IV/catheter/monitoring devices, and mumbling incoherently. Patient's boyfriend was at bedside today and her mental status was best at that time. After rapid response, she was quickly able to be titrated down on oxygen requirements, currently on 2L NC
[2022-10-19 18:43] LABS: Amphetamines Screen Urine Negative (Negative); Barbiturates Screen Urine Negative (Negative); Benzodiazepines Screen Urine Negative (Negative); Cocaine Screen Urine Negative (Negative); Opiate Screen Urine Negative (Negative); PCP Screen Urine Negative (Negative); THC Screen Urine Negative (Negative)
[2022-10-20] VITALS (152 sets, daily range): BP systolic 121–164; BP diastolic 57–97; PULSE 76–128; RESP 15–38; O2SAT 71–100
[2022-10-20 03:14] LABS: Basophils % 0.5 %; Eosinophils # 0.1 10^3/uL (0.0-0.8); Eosinophils % 2.3 %; Hematocrit 30.4 % (37.0-47.0); Hemoglobin 9.7 g/dL (11.5-15.3); Lymphocytes # 1.2 10^3/uL (0.8-4.8); Lymphocytes % 20.7 %; Mean Corpuscular HGB Conc 31.9 g/dL (30.0-36.0); Mean Corpuscular Hemoglobin 32.2 pg (28.0-34.0); Mean Platelet Volume 9.3 fL (7.4-10.4); Monocytes # 0.4 10^3/uL (0.2-0.9); Monocytes % 6.9 %; Neutrophils % 69.1 %; Nucleated Red Blood Cells % 0 %; Platelet Count 230 10^3/cmm (130-400); Red Blood Count 3.01 10^6/uL (4.1-5.3); Red Cell Distribution Width 13.9 % (12.1-15.1); White Blood Count 5.7 10^3/uL (4.0-10.0)
[2022-10-20 03:48] LABS: Anion Gap 20.5 (5-19); Blood Urea Nitrogen 27 mg/dL (8-23); Carbon Dioxide 27 mmol/L (22-29); Chloride 103 mmol/L (98-107); Glomerular Filtration Rate 37.4 mL/min (90-130); Glucose 84 mg/dL (65-115); NT Pro B Type Natriuretic Pept 9841 pg/mL (0-125); Osmolality Calculated 308 mOsm/kg (285-295); Potassium 3.5 mmol/L (3.5-5.1); Sodium 147 mmol/L (136-145)
--- NOTE | 2022-10-20 04:46 | PC.NURSE ---
patient has been AOx3 throughout shift however paranoia persists. Restraints were released @2330 and patient has been cooperative since. Precedex turned off shortly after. Patient at times believes she is being held in a psych [place]. She has also been concerned about medications and any drinks that are offered. She would like to speak to the doctor regarding her ADL which she refers to as her Code status/Living will. She asked that we sign a paper regarding this and it has been put in her folder. We have not had any issues with pulling off lines or leads and she has been cooperative utilizing the call light for needs.
--- NOTE | 2022-10-20 05:35 | PC.NURSE ---
Patient refused IV flush/check. Patient was instructed on reasoning for checking patency and the possibility of IV going bad. Patient stated I am willing to take the risk .
[2022-10-20] MEDS: sucralfate 1 gm Tablet PO (08:05)
[2022-10-20] MEDS: pantoprazole 40 mg SDV IVP (08:06)
[2022-10-20] MEDS: metoprolol succinate ER (24 HR) 50 mg Tablet PO (08:06)
[2022-10-20] MEDS: lamoTRIgine 100 mg Tablet 200 MG PO (08:21)
[2022-10-20] MEDS: folic acid 1 mg Tablet PO (08:21)
[2022-10-20] MEDS: aspirin 81 mg EC Tablet PO (08:21)
[2022-10-20] MEDS: ALPRAZolam 0.5 mg Tablet PO (08:21)
[2022-10-20] MEDS: levothyroxine 75 mcg Tablet PO (08:21)
[2022-10-20] MEDS: meropenem 1,000 MG in sodium chloride 0.9% (plus) 50 ML 100 MG IV (08:22)
--- NOTE | 2022-10-20 08:23 | CT_ITS ---
WS: [id number] CTA OF THE CHEST WITH PULMONARY EMBOLISM PROTOCOL TECHNIQUE: High-resolution contrast enhanced CTA of the chest with coronal and sagittal reformatted i mages with pulmonary embolism protocol. MIP images are also reviewed. CLINICAL INFORMATION: hypoxia COMPARISON: None. DLP: 177.[address] scans at [facility] use at least one of these dose optimization techniques: automated e xposure control; mA and/or kV adjustment per patient size (includes targeted exams where dose is matc hed to clinical indication); or iterative reconstruction. FINDINGS: Proximal main pulmonary arteries are normal. Normal segmental and subsegmental pulmonary arteries. No evidence of pulmonary embolus. Small bilateral pleural effusions. Compressive atelectasis in the RIG HT greater than LEFT lower lobes. Moderate chronic emphysematous changes. No mediastinal or hilar lym phadenopathy. No axillary lymphadenopathy. Adrenal glands are normal. Partially visualized hepatomegaly. Cholecystectomy clips. Splenic granulom as. Air-fluid level in the stomach. Celiac and SMA are patent upper abdomen. Mild thoracic kyphosis. CT/CT angio chest PE protcl [id number] IMPRESSION: 1. No evidence of pulmonary embolus. 2. Small RIGHT greater than LEFT pleural effusions with compressive atelectasi s RIGHT greater than LEFT lower lobes. 3. Moderate chronic emphysematous changes.
[2022-10-20] MEDS: iohexol 350 mg/mL 500 mL Btl (per mL) IV (10:59)
--- NOTE | 2022-10-20 11:01 | PM.DCS ---
Discharge Providers Date of Admission: 10/18/22 16:37 Date of Discharge: October 20, 2022 Attending Provider at Admission: Herbert Crews MD Attending Provider at Discharge: Herbert Crews MD Primary Care Provider: Cheikh Obando MD Diagnoses at Discharge Discharge Diagnosis (1) Acute respiratory failure with hypoxia: Status: Acute (2) Metabolic acidemia: Status: Acute (3) Fluid overload: Status: Acute (4) Rhabdomyolysis: Status: Acute (5) Resting tremor: Status: Acute (6) Goals of care, counseling/discussion: Status: Acute (7) Syncope: Status: Acute (8) Cerebellar ataxia: Status: Acute (9) Uremia: Status: Acute (10) Acute kidney injury: Status: Acute (11) Falls frequently: Status: Acute (12) Acute hyponatremia: Status: Acute (13) Laceration of head: Status: Acute (14) Frontotemporal dementia: Status: Acute (15) Postconcussive syndrome: Status: Acute (16) Encephalopathy acute: Status: Acute Reason for Visit Reason for Visit: weakness/head lac Hospital Course Hospital Course Lluvia Pagan is a 67 year old female with a past medical history of CAD status post 2 stents to LAD, history of right renal stent, history of hypertension, hypothyroidism, postconcussion syndrome, history of frontotemporal dementia, is on multiple psychotropic medications, who presents to [facility] for syncopal episodes, fall, lightheadedness, confusion.? Patient tells me that roughly a year ago, she had a significant fall, head trauma, since then and being diagnosed with postconcussion syndrome, she cognitive complaints, encephalopathy, agitation, confusion was seen by neurology, EEG within normal limits placed on Lamictal in addition to other medications.? She tells me that in the last 2 weeks, she has had 3 significant falls, one significant fall roughly 2 weeks ago one significant fall on , when she fell, and significant right-sided head trauma, she saw her primary care provider, she had bleeding from a superficial laceration, right temporal region, she also had a fall this morning.? She tells me that the nature of these falls is just before she falls she will feel lightheaded, feel dizzy, no vertigo, she will get tunnel vision, she will lose consciousness for the first 2 falls and she is passed out, this last fall she did not.? Denies any chest pain any palpitations, no nausea, no vomiting her was noticed the last presyncopal syncopal episode and did not see any seizure like episodes, no strokelike symptoms.? No facial no slurring of words.? She also tells me that what is new is her tremor, she has tremors of her bilateral upper extremity.? She her to person, to place, not to time, she follows commands, she feels her feels in terms of her mentation she does have cognitive deficiencies after her postconcussion syndrome, but she is relatively at baseline.? Denies any dysuria, hematuria Patient was admitted to the [facility] for multiple reasons as below Initial syncope, carotid artery ultrasound within normal limits, CT head within normal limits, telemetry monitoring unremarkable, likely secondary to hyponatremia, CHAYO, autonomic dysfunction from frontotemporal dementia. No recurrent syncopal episodes, continue to monitor, recommended discharge to [facility], patient declined CHAYO on admission, secondary to rhabdomyolysis received IV hydration, overall clinically improved, creatinine discharge 1.4 Hyponatremia likely sec to dehydration during hospitalization, received IV fluids, overall clinically improved Acute on chronic encephalopathy, underlying frontotemporal dementia, initially from dehydration, hyponatremia, uremia, overall clinically improved, back to baseline alert and oriented x3 on discharge Patient developed acute hypoxic respiratory failure during hospitalization likely secondary to fluid overload received diuretic therapy, broad-spectrum antibiotic therapy remained afebrile cultures so far have been unremarkable, venous ultrasound negative for DVT, CT angiogram negative for pulmonary embolism. Clinically improved, down to 2 L, discharged with close follow-up with primary care provider as outpatient Patient had persistent cerebellar ataxia, acute on chronic dementia, likely from frontotemporal dementia recommended discharge to [facility] however patient declined, she will be under the care of her boyfriend Physical Exam Const: COMMON NORMALS: no acute distress and patient oriented x3 Resp: COMMON NORMALS: normal respiratory effort, No retractions, No use of accessory muscles and clear to auscultation bilaterally AUSCULTATION: clear to auscultation bilaterally Cardio: COMMON NORMALS: regular rate, regular rhythm, S1 normal heart sound present and S2 normal heart sound present RATE: regular rate RHYTHM: regular rhythm HEART SOUNDS: S1 normal heart sound present and S2 normal heart sound present GI: COMMON NORMALS: Normal to inspection, nondistended, normoactive bowel sounds present and non-tender Extremity: COMMON NORMALS: no pedal edema Neuro: COMMON NORMALS: patient oriented x3 Psych: COMMON NORMALS: mental status grossly normal Urinary Catheter Management: Mckinley: Cath Placed During This Visit: yes Reason for Continuing Indwelling Catheter: Accurate Measurement of Urinary Output in Critically Ill Patients Urinary Catheter Date of Insertion: 10/19/22 Urinary Catheter Time of Insertion: 08:07 Discharge Data Studies Completed and Pending Completed Studies During Hospitalization Category Date Time Status CT head wo con* [id number] Stat Cat Scan 10/17/22 14:12 Completed XR chest 1V portable [id number] Routine Exams 10/19/22 07:05 Completed XR chest 1V portable [id number] Urgent Exams 10/17/22 14:13 Completed CV carotid duplex BI* [id number] Stat Ultrasound 10/17/22 17:10 [place] [id number] Stat Ultrasound 10/19/22 08:27 Completed CV. echo complete* [id number] Stat Ultrasound 10/17/22 17:10 Completed US kidney bilateral [US renal BI* [id number]] Stat Ultrasound 10/17/22 17:10 Completed Pending at discharge Category Date Time Status CT angio chest PE protcl [id number] Stat Cat Scan 10/20/22 08:23 Taken LINH SCREEN [LINH Profile Rheumatology] Stat Lab 10/17/22 17:40 Results Basic Metabolic Panel AM LABS Lab 10/21/22 04:00 Ordered Blood Culture Stat Lab 10/19/22 07:58 Results Ceruloplasmin Stat Lab 10/18/22 16:26 Received Complete Blood Count w/Auto AM LABS Lab 10/21/22 04:00 Ordered Copper Level Stat Lab 10/18/22 16:26 Received Lamotrigine (Lamictal) Level Timed Lab 10/17/22 17:40 Received Lead Serum Routine Lab 10/18/22 10:28 Received MRSA by PCR Stat Lab 10/19/22 09:45 Received NT Pro B Type Natriuretic Pept QAM Lab 10/21/22 06:00 Ordered NT Pro B Type Natriuretic Pept QAM Lab 10/22/22 06:00 Ordered Urine Culture Stat Lab 10/19/22 01:05 Received Vancomycin Trough Timed Lab 10/22/22 09:00 Ordered Radiology Impressions Head CT 10/17/22 14:12 IMPRESSION: 1. No evidence of intracranial hemorrhage or mass effect. 2. Mild small vessel changes. Moderate parenchymal volume loss. 3. LEFT maxillary sinusitis. 4. No acute intracranial findings. Carotid Doppler Study 10/17/22 17:10 IMPRESSION: 1. Less than 50% bilateral ICA stenosis (Mild stenosis). 2. Vertebral have antegrade flow. REFERENCES: SRU CRITERIA. The degree of internal carotid artery stenosis is based on criteria defined by the Society of Radiologists in Ultrasound (SRU). Normal is no stenosis. Mild is less than 50% stenosis. Moderate is 50-69% stenosis. Severe is greater than 69% stenosis to near occlusion. Near occlusion is a markedly narrowed lumen. Total occlusion is no detectable patent lumen. Renal Ultrasound 10/17/22 17:10 IMPRESSION: 1. No solid renal mass or hydronephrosis. 2. Small bladder postvoid residual. Chest X-Ray 10/19/22 07:05 IMPRESSION: 1. Mild interstitial thickening probably related to fluid overload. 2. Emphysema. 3. No pneumonia. Laboratory Results WBC 5.7 10^3/uL (4.0-10.0) 10/20/22 02:33 RBC 3.01 10^6/uL (4.1-5.3) L 10/20/22 02:33 Hgb 9.7 g/dL (11.5-15.3) L 10/20/22 02:33 Hct 30.4 % (37.0-47.0) L 10/20/22 02:33 MCV 101.0 fl (81-99) H D 10/20/22 02:33 MCH 32.2 pg (28.0-34.0) 10/20/22 02:33 MCHC 31.9 g/dL (30.0-36.0) D 10/20/22 02:33 RDW 13.9 % (12.1-15.1) 10/20/22 02:33 Plt Count 230 10^3/cmm (130-400) 10/20/22 02:33 MPV 9.3 fL (7.4-10.4) 10/20/22 02:33 Neut % (Auto) 69.1 % 10/20/22 02:33 Lymph % (Auto) 20.7 % 10/20/22 02:33 [place] % (Auto) 6.9 % 10/20/22 02:33 Eos % (Auto) 2.3 % 10/20/22 02:33 Baso % (Auto) 0.5 % 10/20/22 02:33 Neut # (Auto) 3.90 10^3/uL (1.8-7.7) 10/20/22 02:33 Lymph # (Auto) 1.2 10^3/uL (0.8-4.8) 10/20/22 02:33 [place] # (Auto) 0.4 10^3/uL (0.2-0.9) 10/20/22 02:33 Eos # (Auto) 0.1 10^3/uL (0.0-0.8) 10/20/22 02:33 Baso # (Auto) 0.0 10^3/uL (0.0-0.1) 10/20/22 02:33 Nucleated RBC % (auto) 0 % 10/20/22 02:33 Nucleated RBCs # 0.0 /100WBC 10/20/22 02:33 ESR 3 mm/hr (0-15) 10/18/22 05:19 D-Dimer 1.87 ug/mIFEU (0-0.59) H 10/19/22 07:52 Specimen Type Arterial 10/19/22 06:42 Sample Site Brachial, left 10/19/22 06:42 ABG pH 7.17 (7.35-7.45) L* 10/19/22 06:42 ABG pCO2 43.6 mmHg (35-45) 10/19/22 06:42 ABG pO2 109.0 mmHg (80.0-100.0) H 10/19/22 06:42 ABG HCO3 15.8 mmol/L (22-26) L 10/19/22 06:42 ABG O2 Saturation 97.5 10/19/22 06:42 ABG Base Excess -12.2 mmol/L (-2.0-2.0) L 10/19/22 06:42 Ruiz Test Pos 10/19/22 06:42 A-a O2 Gradient Not Reportable 10/19/22 06:42 Hematocrit 31.2 % (37-47) L 10/19/22 06:42 Hgb O2 Saturation 95.6 % (95-100) 10/19/22 06:42 Carboxyhemoglobin 0.5 %THgb (0.4-20.1) 10/19/22 06:42 Methemoglobin 1.4 % (0.4-1.5) 10/19/22 06:42 Total Hemoglobin 10.2 g/dL (12-16) L 10/19/22 06:42 Sodium 146.0 mmol/L (131-143) H 10/19/22 06:42 Potassium 4.4 mmol/L (3.5-5.0) 10/19/22 06:42 Glucose 85.0 mg/dL (70-115) 10/19/22 06:42 Ionized Calcium 1.3 mmol/L (1.1-1.4) 10/19/22 06:42 O2 Delivery Device Oxy mask 10/19/22 06:42 O2 Liters/Min 5.0 % 10/19/22 06:42 Rubber Liner ID [email or web address] 10/19/22 06:42 Sodium 147 mmol/L (136-145) H 10/20/22 02:33 Potassium 3.5 mmol/L (3.5-5.1) 10/20/22 02:33 Chloride 103 mmol/L (98-107) 10/20/22 02:33 Carbon Dioxide 27 mmol/L (22-29) 10/20/22 02:33 Anion Gap 20.5 (5-19) H 10/20/22 02:33 BUN 27 mg/dL (8-23) H 10/20/22 02:33 Creatinine 1.4 mg/dL (0.5-0.9) H 10/20/22 02:33 GFR Calculation 37.4 mL/min (90-130) L 10/20/22 02:33 Glucose 84 mg/dL (65-115) 10/20/22 02:33 POC Glucose 77 mg/dL (70-110) 10/19/22 07:43 Calculated Osmolality 308 mOsm/kg (285-295) H 10/20/22 02:33 Lactic Acid 0.9 mmol/L (0.5-2.2) 10/19/22 07:52 Calcium 9.0 mg/dL (8.5-10.5) 10/20/22 02:33 Phosphorus 3.2 mg/dL (2.5-4.5) 10/19/22 07:16 Magnesium 1.9 mg/dL (1.7-2.3) 10/19/22 07:16 Iron 46 ug/dL (37-145) 10/19/22 07:16 Ferritin 354 ng/mL (15-150) H 10/18/22 16:26 Total Bilirubin 0.2 mg/dL (0.15-1.2) 10/19/22 07:52 Direct Bilirubin 0.20 mg/dL (0.00-0.30) 10/19/22 07:52 AST 40 U/L (0-32) H 10/19/22 07:52 ALT 20 U/L (0-33) 10/19/22 07:52 Alkaline Phosphatase 100 U/L (35-105) 10/19/22 07:52 Ammonia 27 umol/L (11-51) 10/18/22 16:26 Creatine Kinase 578 U/L (26-192) H* 10/17/22 15:04 CK-MB (CK-2) 12.9 ng/mL (0-5.34) H 10/17/22 15:04 CK-MB (CK-2) Rel Index 2.2 % (0.0-10.4) 10/17/22 15:04 Troponin T Baseline 47 ng/L (0-10) H 10/19/22 07:16 Troponin T 120 Minute 44.92 ng/L (0-10) H 10/19/22 09:47 Delta Troponin T -2.08 ABS# (0-10) L 10/19/22 09:47 Troponin T Hi Sens 6Hr 19.94 ng/L (0-10) H 10/17/22 23:20 Troponin T Hi Sens 6Hr Delta -4.06 ng/L (0-12) L 10/17/22 23:20 C-Reactive Protein 106.2 mg/L (0.0-4.9) H 10/19/22 07:16 NT-Pro-B Natriuret Pep 9841 pg/mL (0-125) H 10/20/22 02:33 Total Protein 5.8 g/dL (6.6-8.7) L 10/19/22 07:52 Albumin 3.3 g/dL (3.5-5.2) L 10/19/22 07:52 Globulin 2.5 g/dL (1.3-4.6) 10/19/22 07:52 Triglycerides 255 mg/dL (0-150) H 10/17/22 17:40 Cholesterol 135 mg/dL (0-200) 10/17/22 17:40 LDL Cholesterol, Calc 19 mg/dL (50-129) L 10/17/22 17:40 HDL Cholesterol 65 mg/dL (60-100) 10/17/22 17:40 LDL/HDL Ratio 0.29 RATIO (0.00-3.22) 10/17/22 17:40 Cholesterol/HDL Ratio 2.08 mg/dL (0.0-4.40) 10/17/22 17:40 Lipase 42 U/L (13-60) 10/19/22 07:52 Vitamin B12 861 pg/mL (232-1245) 10/17/22 17:40 Folate 14.7 ng/mL (4.8-37.3) 10/17/22 17:40 Procalcitonin 0.69 ng/mL (0-0.5) H 10/19/22 07:16 TSH 3.67 uIU/mL (0.27-4.20) 10/17/22 17:40 Free T4 1.15 ng/dL (0.82-1.77) 10/17/22 17:40 Free T3 1.5 PG/ML (2.0-4.4) L 10/17/22 17:40 Urine Color Yellow (Yellow) 10/19/22 01:05 Urine Appearance Clear (CLEAR) 10/19/22 01:05 Urine pH 5 (5-7) 10/19/22 01:05 Ur Specific [place] 1.020 (1.005-1.030) 10/19/22 01:05 Urine Protein Neg (Negative) 10/19/22 01:05 Urine Glucose (UA) Norm (Normal) 10/19/22 01:05 Urine Ketones 1+ (Negative) H 10/19/22 01:05 Urine Blood Neg (Negative) 10/19/22 01:05 Urine Nitrate Negative (Negative) 10/19/22 01:05 Urine Bilirubin Neg (Negative) 10/19/22 01:05 Urine Urobilinogen Neg mg/dL (Negative) 10/19/22 01:05 Ur Leukocyte Esterase Negative (Negative) 10/19/22 01:05 Urine RBC 0-4 /hpf (0-2) H 10/17/22 15:30 Urine WBC 5-10 /hpf (0-5) H 10/17/22 15:30 Ur Squamous Epith Cells 10-15 /hpf (0-5) H 10/17/22 15:30 Amorphous Sediment Not Reportable 10/17/22 15:30 Urine Bacteria 2+ /hpf (NONE) H 10/17/22 15:30 Salicylates < 0.3 mg/dL (3-10) L 10/17/22 17:40 Urine Opiates Screen Negative ng/mL (Negative) 10/19/22 18:15 Acetaminophen 18.6 ug/mL (10-30) 10/17/22 17:40 Ur Barbiturates Screen Negative ng/mL (Negative) 10/19/22 18:15 Ur Phencyclidine Scrn Negative ng/mL (Negative) 10/19/22 18:15 Ur Amphetamines Screen Negative ng/mL (Negative) 10/19/22 18:15 U Benzodiazepines Scrn Negative ng/mL (Negative) 10/19/22 18:15 Urine Cocaine Screen Negative ng/mL (Negative) 10/19/22 18:15 U Marijuana (THC) Screen Negative ng/mL (Negative) 10/19/22 18:15 Ethyl Alcohol < 10 mg/dL (0-10) 10/17/22 17:40 LYNN-1 Antibody <1.0 neg AI (<1.0 NEG) 10/17/22 17:40 SS-A Antibody <1.0 neg AI (<1.0 NEG) 10/17/22 17:40 SS-B Antibody <1.0 neg AI (<1.0 NEG) 10/17/22 17:40 Sm (Gagnon) Antibody <1.0 neg AI (<1.0 NEG) 10/17/22 17:40 GERIATRIC NURSE ASSISTANT Antibody <1.0 neg AI (<1.0 NEG) 10/17/22 17:40 Scl-70 Antibody <1.0 neg AI (<1.0 NEG) 10/17/22 17:40 Centromere B Antibody <1.0 neg AI (<1.0 NEG) 10/17/22 17:40 Complement C3c 98 mg/dL (83-193) 01/23/23 17:40 Complement C4c 28 mg/dL (15-57) 10/17/22 17:40 CH50 Classical Pathway >60 U/mL (31-60) H 10/17/22 17:40 RPR w/Rflx to Titer Non-reactive (NON-REACTIVE) 10/17/22 17:40 HIV 1&2 Ab & HIV 1 Ag Non-reactive (Non-Reactiv) 10/18/22 16:26 HIV 1&2 Antibody Non-reactive (Non-Reactiv) 10/18/22 16:26 Vitals Last Vital Signs Temp 97.8 F 10/19/22 19:00 Pulse 76 10/20/22 08:29 Resp 35 H 10/20/22 08:20 BP 145/70 10/20/22 10:32 Pulse Ox 91 10/20/22 08:33 O2 Del Method 10/20/22 08:29 O2 Flow Rate 2 10/20/22 08:33 Discharge Plan Discharge Patient Disposition: Home Condition: Stable Prescriptions: New doxycycline hyclate 100 mg capsule 100 mg PO BID 5 Days Qty: 10 0RF Continued cetirizine 10 mg capsule 10 mg PO DAILY PRN (Reason: Allergy Symptoms) metoprolol succinate 50 mg tablet extended release 24 hr 50 mg PO DAILY quetiapine [Seroquel] 100 mg tablet 100 mg PO BEDTIME alprazolam [Xanax] 0.5 mg tablet 0.5 mg PO DAILY donepezil 10 mg tablet 10 mg PO BEDTIME spironolacton-hydrochlorothiaz 25-25 mg tablet 1 tab PO BID hydroxyzine pamoate 50 mg capsule 50 mg PO Q6H PRN (Reason: Anxiety) levothyroxine 75 mcg tablet 75 mcg PO DAILY Premarin 0.625 mg tablet 0.625 mg PO DAILY folic acid 1 mg tablet 1 mg PO DAILY zaleplon 5 mg capsule 5 mg PO BEDTIME PRN (Reason: Sleep) Lamictal 200 mg tablet 200 mg PO DAILY ondansetron 8 mg tablet,disintegrating 8 mg PO Q8H PRN (Reason: Nausea) albuterol sulfate 90 mcg/actuation Hfa Aerosol Inhaler 2 puff INHALATION QID PRN (Reason: Shortness Of Breath) Discharge Orders: Discharge Order (Routine); Ordered 10/20/22 Ordered By: Herbert Crews Other Ambulatory Orders: DME: Oxygen (Order) Location: None Selected Ordered By: Herbert Crews Referrals: Carmen Perkins MD [Physician] - 4-7 days Cheikh Obando MD [Primary Care Provider] - 1-3 days Discharge Diet: Cardiac Discharge Activity: Resume usual activity Patient Instructions: Opioid Safety Activity Restrictions/Additional Instructions: - Please take antibiotics as prescribed -Please see your primary care provider in 1 week -Please see Dr. Perkins in 4 to 7 days Discharge Attestations Time Spent in Discharge Care*: less than 30 min Quality Metrics Clinical Quality Measures [ No reported AMI, CVA or VTE this stay] Coding Level of Care Code Acute Chg FW DC note Exam Detailed Diagnoses Acute respiratory failure with hypoxia J96.01 Metabolic acidemia E87.20 Fluid overload E87.70 Rhabdomyolysis M62.82 Resting tremor G25.2 Goals of care, counseling/discussion Z71.89 Syncope R55 Cerebellar ataxia G11.9 Uremia N19 Acute kidney injury N17.9 Falls frequently R29.6 Acute hyponatremia E87.1 Laceration of head S01.91XA Frontotemporal dementia G31.09; F02.80 Postconcussive syndrome F07.81 Encephalopathy acute G93.40
--- NOTE | 2022-10-20 12:24 | PC.CHAP ---
Pastoral Care Encounter/Spiritual Assessment Type of Contact [] Declined mannequin mold maker visit [] Patient/Family/Request visit [] Outpatient visit [] Follow-up visit [] Physician referral [] Code/Alert [x] Routine visit [] Staff referral [] Actively dying [] Patient sleeping [] Family support [] [x] Out of room [] Palliative care [] [] Receiving care in room [] Pre-surgical visit [] Trauma [] Long length of stay [x] ICU visit [x] Other: ct scan Relational/Emotional Strength [] Patient feels connected with others/family/visitors/staff [] Distress [] Loneliness/isolation [] Abandonment Spirituality of Patient [] Person of Nicole [] Attends Zoroastrianism of their Nicole [] Believes in Prayer [] Reads Bible or Buddhist materials [] There are Spiritual issues to be addressed Phlebotomy Services Representative Interventions [x] Prayer [] Active listening [] Non-anxious presence [] Spiritual/emotional support [] Crisis/trauma care [] Spiritual counseling [] Bereavement support [] Provided bereavement packet [] Provided Bible/devotional materials [] Provided toy/stuffed animal, coloring book to patient or family member [] Provided Communion [] Anointing/[place] [] Salvation [] Completed spiritual assessment [] Other: Impact on Illness or Injury [] Angry [] Fearful [] Anxious [] Often cries [] Exhaustion [] Unable to work [] Unable to attend mosque [] Unable to walk/stand [] Unable to read [] Unable to drive [] Unable to eat/drink [] Unable to sleep [] Unable to be with family [] Patient intubated [] Other: Summary Time spent with patient
[2022-10-20 12:29] LABS: Ceruloplasmin 29 mg/dL (18-53)
--- NOTE | 2022-10-20 13:10 | PC.NURSE ---
Discharge Note Patient discharged home via wheelchair accompanied by friend. Discharge packet given to patient and discharge instructions reviewed with patient. All questions answered at this time. Belongings/home medications returned except t-shirt and pants, please see previous note for detail. Patient discharged home on 2LNC, alert/oriented x4 at time of transfer. Several skin tears noted to bilateral arms and laceration to the head please see wound assessment for detail.
--- NOTE | 2022-10-20 13:12 | PC.NURSE ---
Patient Belongings Missing pants and shirt at time of discharge. This nurse along with charge nurse unable to locate shirt and pants at this time. Patient given unit phone number to contact for missing clothes.
[2022-10-20 14:05] LABS: ANA SCREEN, IFA NEGATIVE (NEGATIVE)
[2022-10-20 18:30] LABS: THYROID PEROXIDASE ANTIBODIES 4 IU/mL (<9)
[2022-10-21 09:05] LABS: DNA AB (DS) CRITHIDIA,IFA NEGATIVE (NEGATIVE)
[2022-10-22 10:04] LABS: Lamotrigine (Lamictal) Level 19.6 mcg/mL (4.0-18.0)
[2022-10-23 12:05] LABS: Copper Level 147 mcg/dL (70-175)
== END 2022-10-20 13:10 | disposition home health service (06) | DRG 640 ==
LOC: ER 16:56 → MEDSURG 18:54 → ICU 10-19 07:20
PROVIDERS: Physician Assistant; Student in an Organized Health Care Education/Training Program; Admitting Provider Family Medicine; Emergency Provider Family Medicine; PCP Family Medicine; Visit Provider Family Medicine
DX: E87.1 Hypo-osmolality and hyponatremia (principal); J96.01 Acute respiratory failure with hypoxia; F02.811 Dementia in other diseases classified elsewhere, unspecified severity, with agitation; G11.9 Hereditary ataxia, unspecified; N17.9 Acute kidney failure, unspecified; M62.82 Rhabdomyolysis; I25.10 Atherosclerotic heart disease of native coronary artery without angina pectoris; Z95.5 Presence of coronary angioplasty implant and graft; I10 Essential (primary) hypertension; E03.9 Hypothyroidism, unspecified; G31.09 Other frontotemporal neurocognitive disorder; F07.81 Postconcussional syndrome; R29.6 Repeated falls; E86.0 Dehydration; Z79.51 Long term (current) use of inhaled steroids; Z88.5 Allergy status to narcotic agent; Z88.0 Allergy status to penicillin; E87.20 Acidosis, unspecified; F17.200 Nicotine dependence, unspecified, uncomplicated
CPT/HCPCS: 12004; 36415; 36416; 36600; 51702; 70450; 71045; 71275; 76770; 80048; 80051; 80053; 80061; 80076; 80175; 80306; 80307; 81001; 81003; 82140; 82330; 82390; 82525; 82550; 82553; 82607; 82728; 82746; 82805; 82962; 83540; 83605; 83655; 83690; 83735; 83880; 84100; 84145; 84439; 84443; 84481; 84484; 85014; 85018; 85025; 85378; 85651; 86140; 86160; 86162; 86235; 86255; 86376; 86592; 87040; 87086; 87641; 87806; 92523; 92610; 93005; 93306; 93880; 93970; 94664; 94760; 96365; 96372; 97116; 97162; 97167; 97530; 97535; 99285; A4570; C9113; G0378; J0696; J1630; J1650; J1940; J2060; J2185; J2405; J3370; J3486; J3490; J7030; J7040; J7050; Q9967

== ENCOUNTER → 2022-11-08 12:56 | Outpatient (BNVA) | payer MEDICARE, BC, SELFPAY | PROVIDERS: PCP Family Medicine; Visit Provider Specialist | DX: F07.81 Postconcussional syndrome (principal); G31.09 Other frontotemporal neurocognitive disorder; F02.80 Dementia in other diseases classified elsewhere, unspecified severity, without behavioral disturbance, psychotic disturbance, mood disturbance, and anxiety; Z87.820 Personal history of traumatic brain injury | CPT/HCPCS: 99215 ==

== ENCOUNTER → 2023-03-22 13:41 | Outpatient (BNVA) | payer MEDICARE, BC, SELFPAY | PROVIDERS: PCP Family Medicine; Visit Provider Specialist | DX: G31.09 Other frontotemporal neurocognitive disorder (principal); F02.80 Dementia in other diseases classified elsewhere, unspecified severity, without behavioral disturbance, psychotic disturbance, mood disturbance, and anxiety; F07.81 Postconcussional syndrome | CPT/HCPCS: 96116; 99214 ==

== ENCOUNTER → 2023-09-27 13:24 | Outpatient (BNVA) | payer MEDICARE, BC, SELFPAY | PROVIDERS: PCP Family Medicine; Visit Provider Specialist | DX: F07.81 Postconcussional syndrome (principal) | CPT/HCPCS: 99214 ==

== ENCOUNTER 2024-02-02 12:13 | Outpatient (CLI) | payer MEDICARE, BC, SELFPAY ==
--- NOTE | 2024-02-02 12:23 | CTR_ITS ---
PROCEDURE INFORMATION: Exam: CT Chest Without Contrast; Diagnostic Exam date and time: 02/02/2024 12:36 PM Age: 68 years old Clinical indication: Abnormal findings; Lung mass or nodule; Single or solitary nodule; Prior surgery; Surgery date: 6+ months; Surgery type: Stents; Additional info: Abn findings/pulmonary nodule 09/16 TECHNIQUE: Imaging protocol: Diagnostic computed tomography of the chest without contrast. Radiation optimization: All CT scans at this facility use at least one of these dose optimization techniques: automated exposure control; mA and/or kV adjustment per patient size (includes targeted exams where dose is matched to clinical indication); or iterative reconstruction. COMPARISON: CT angio chest PE protcl [id number] 10/20/2022 10:53 AM RADIATION DOSE METRICS: Total DLP (mGy-cm): 217.99 FINDINGS: Lungs: There is a 6 x 9 mm spiculated nodule right upper lobe image 16 not visualized on the prior exam. There are moderate emphysematous changes. No airspace consolidation. Pleural spaces: Unremarkable. No pneumothorax. No pleural effusion. Heart: Unremarkable. No cardiomegaly. No pericardial effusion. Coronary arteries: There is severe atherosclerotic calcification of the coronary arteries. Lymph nodes: Unremarkable. No enlarged lymph nodes. Vasculature: Unremarkable. No aortic aneurysm. Diaphragm: A small hiatal hernia is present. Liver: There is a 1.6 cm hypodense nodule right lobe of the liver image 60 that previously measured 1.4 cm. There is a 0.9 cm hypodense nodule right lobe of the liver image 49 not definitely visualized on the prior exam. The liver is heterogeneous in density. Gallbladder and bile ducts: There has been a cholecystectomy. Bones/joints: Unremarkable. No acute fracture. Soft tissues: Unremarkable. CT/CT chest wo con [id number] IMPRESSION: 1. 6 x 9 mm right upper lobe spiculated nodule new since prior exam.Consider non-emergent PET/CT or tissue sampling.(Reference: Timoteo) 2. Two hypodense liver nodules. One has increased in size compared to the prior exam concerning for metastatic disease. Follow-up CT scan abdomen pelvis with contrast is recommended. COMMENTS: The presence of pulmonary emphysema on CT is an independent risk factor for lung cancer. In the absence of a history or active diagnosis of lung cancer, it is recommended that this patient with emphysema be evaluated for enrollment in a low dose CT lung cancer screening program. REFERENCES: Timoteo Donohue, et al. Guidelines for Management of Incidental Pulmonary Nodules Detected on CT Images: From the Fleischner Society 2017. Radiology. 2017;284(1):228-243.
== END 2024-02-02 12:14 | disposition home or self-care (01) ==
LOC: RAD 12:13
PROVIDERS: PCP Family Medicine; Visit Provider Family Medicine
DX: R91.8 Other nonspecific abnormal finding of lung field (principal); J43.9 Emphysema, unspecified
CPT/HCPCS: 71250

== ENCOUNTER → 2024-03-26 09:27 | Outpatient (BNVA) | payer MEDICARE, BC, SELFPAY | PROVIDERS: PCP Family Medicine; Visit Provider Specialist | DX: R41.3 Other amnesia (principal); F07.81 Postconcussional syndrome | CPT/HCPCS: 99214 ==

== ENCOUNTER 2024-04-16 10:26 | Outpatient (CLI) | payer MEDICARE, BC, SELFPAY ==
--- NOTE | 2024-04-16 10:36 | PETR_ITS ---
PROCEDURE INFORMATION: Exam: PET/CT Skull Base to Mid-thigh Exam date and time: 04/16/2024 11:13 AM Age: 68 years old Clinical indication: Abnormal findings; 6 x 9 mm right upper lobe spiculated nodule new since prior exam; Prior surgery; Surgery date: 6+ months; Surgery type: Stents 08/2012; Additional info: Abnormal imaging LABS AND CLINICAL REPORTS: Glucose: 116 mg/dl Treatment strategy for malignancy (PET staging): Initial Staging (PI) TECHNIQUE: Imaging protocol: Following at least four-hour fasting and following the injection of radiopharmaceutical, low dose CT images were obtained. Then, PET images were obtained. Attenuation corrected images were constructed using the CT scan. Fused images of PET and CT were reviewed. The standardized uptake values (SUV) reported below are maximum values within a region of interest, expressed in gm/ml. Exam includes orbital meatal line to mid-thigh. Radiopharmaceutical: 14.43 mCi F-18 FDG (Fluorodeoxyglucose), IV. Time of imaging post radiopharmaceutical administration: 1 hour Injection site: left AC COMPARISON: CT chest wo con [id number] 02/02/2024 12:36 PM FINDINGS: Brain: Visualized brain has normal physiologic uptake. Pharynx: No abnormal uptake. Larynx: No abnormal uptake. Lungs, pleura and trachea: Redemonstrated spiculated nodule measuring 0.8 x 0.5 cm in the right upper lobe. There is no associated increased FDG uptake. Heart: Normal physiologic uptake. Mediastinal space: No abnormal uptake. Liver: No abnormal uptake. Gallbladder and biliary ducts: Cholecystectomy. Pancreas: No abnormal uptake. Spleen: Calcified splenic granulomas. Adrenal glands: No abnormal uptake. Kidneys and ureters: Normal physiologic uptake. Stomach and bowel: No abnormal uptake. Reproductive: Hysterectomy. Vasculature: Heavy burden of atherosclerotic plaque in the abdominal aorta and branch vessels. No aneurysm. Stents are seen in the bilateral common iliac arteries. Lymph nodes: No abnormal uptake. No lymphadenopathy in the head, neck, chest, abdomen, pelvis, and extremities. Skeleton: No abnormal uptake in the visualized axial and appendicular skeleton. Soft tissues: No abnormal uptake in the visualized head, neck, chest, abdomen, pelvis, and extremities. PET/PET skull to thigh INIT [id number] IMPRESSION: No FDG avid disease is identified. Redemonstrated spiculated nodule measuring 0.8 x 0.5 cm in the right upper lobe. There is no associated increased FDG uptake.
== END 2024-04-16 10:27 | disposition home or self-care (01) ==
PROVIDERS: PCP Family Medicine; Visit Provider Family Medicine
DX: R91.1 Solitary pulmonary nodule (principal); K76.9 Liver disease, unspecified; D73.89 Other diseases of spleen; I70.0 Atherosclerosis of aorta; Z90.710 Acquired absence of both cervix and uterus; Z90.49 Acquired absence of other specified parts of digestive tract; Z95.820 Peripheral vascular angioplasty status with implants and grafts
CPT/HCPCS: 78815; A9552

== ENCOUNTER 2024-12-10 12:49 | Outpatient (CLI) | payer MEDICARE, BC, SELFPAY ==
--- NOTE | 2024-12-10 12:53 | CT_ITS ---
WS: [id number] CT chest wo con [id number] HISTORY: RIGHT PULMONARY NODULE TECHNIQUE: Axial imaging performed through the thorax. Coronal and sagittal reformats are submitted. All CT scans at [facility] use at least one of these dose optimization techniques: automated exposure control; mA and/or kV adjustment per patient size (includes targeted exams where dose is matched to clinical indication); or iterative reconstruction. CONTRAST: None DLP: 194.66 mGy.cm COMPARISON: 02/02/2024, 10/20/2022, PET/CT 04/16/2024 Lungs and central airway: Moderate pulmonary hyperinflation. Previously described nodule in the RIGHT upper lobe is reidentified. Nodule measures 9 x 4 mm. Nodule appears more linear and scarlike on today's examination as compared to the prior exams. There are a few additional scattered micronodules throughout the lungs. Subsegmental atelectasis in the lingula. No enlarging pulmonary mass or nodule. There is a new endobronchial lesion which is slightly lobulated measuring 5 mm in the proximal LEFT mainstem bronchus. Pleura: Normal. No pleural effusion. Heart and pericardium: Normal size heart with no pericardial effusion. Mediastinum and avril: No mediastinal or hilar adenopathy. Vessels: Moderate atherosclerosis aorta. Normal size pulmonary artery. Coronary artery calcifications. Chest wall and lower neck: No soft tissue masses. Upper abdomen: Prior cholecystectomy. No adrenal mass. Splenic and hepatic granulomata. Vascular calcifications in the splenic artery. Low-attenuation nodule upper pole LEFT kidney. Osseous structures: Mild increase in thoracic kyphosis. CT/CT chest wo con [id number] IMPRESSION: 1. No increase in size of the PET/CT negative nodule in the RIGHT upper lobe n ow measuring 9 x 4 mm. Nodule appears more linear and scarlike and less masslik e. 2. Chronic emphysema. 3. New lobulated 5 mm nodule in the proximal LEFT mainstem bronchus. Endobronc hial lesion versus formed mucous ball. 4. No mediastinal or hilar adenopathy. 5. Prior cholecystectomy. Recommendation: Consider follow-up chest CT in 6 months. Long-term stability ne cessary for the RIGHT upper lobe nodule. LEFT mainstem bronchus can also be ree valuated at that time. If patient is experiencing hemoptysis consider bronchosc opy at this time.
== END 2024-12-10 12:50 | disposition home or self-care (01) ==
PROVIDERS: PCP Family Medicine; Visit Provider Family Medicine
DX: R91.8 Other nonspecific abnormal finding of lung field (principal); J43.8 Other emphysema; Z90.49 Acquired absence of other specified parts of digestive tract; J98.11 Atelectasis; I70.0 Atherosclerosis of aorta; I25.10 Atherosclerotic heart disease of native coronary artery without angina pectoris; K75.3 Granulomatous hepatitis, not elsewhere classified; D73.89 Other diseases of spleen; I70.8 Atherosclerosis of other arteries; R93.422 Abnormal radiologic findings on diagnostic imaging of left kidney; M40.294 Other kyphosis, thoracic region
CPT/HCPCS: 71250

== ENCOUNTER → 2025-03-25 08:39 | Outpatient (BNVA) | payer MEDICARE, BC, SELFPAY | PROVIDERS: PCP Family Medicine; Visit Provider Specialist | DX: R41.3 Other amnesia (principal); F07.81 Postconcussional syndrome; R03.0 Elevated blood-pressure reading, without diagnosis of hypertension; E07.9 Disorder of thyroid, unspecified | CPT/HCPCS: 99213 ==

== ENCOUNTER → 2025-04-03 10:50 | Outpatient (BNVA) | payer MEDICARE, BC, SELFPAY | PROVIDERS: PCP Family Medicine; Referring Provider Specialist; Visit Provider Internal Medicine | DX: G25.2 Other specified forms of tremor (principal); R41.3 Other amnesia; F07.81 Postconcussional syndrome; R03.0 Elevated blood-pressure reading, without diagnosis of hypertension; R29.6 Repeated falls; E03.9 Hypothyroidism, unspecified; R53.83 Other fatigue | CPT/HCPCS: 99204 ==

== ENCOUNTER 2025-06-11 09:26 | Outpatient (CLI) | payer MEDICARE, BC, SELFPAY ==
--- NOTE | 2025-06-11 09:32 | CT_ITS ---
WS: [id number] CT chest wo con [id number] REASON FOR EXAM: RT UPPER LOBE NODULE IV CONTRAST ADMINISTERED: None. TECHNIQUE: Multiple axial images without intravenous contrast enhancement with coronal and sagittal reconstructions. COMPARISON STUDY: Noncontrast CT of the chest 12/10/2024. TOTAL EXAM DLP: 207.[address] scans at [facility] use at least one of these dose optimization techniques: automated exposure control; mA and/or kV adjustment per patient size (includes targeted exams where dose is matched to clinical indication); or iterative reconstruction. FINDINGS: The linear/nodular right upper lobe lung nodule is unchanged compared to the previous study. There is noted to be a pleural tail to this abnormality getting further credence to scar or granulomatous process. The previously demonstrated abnormality in the left mainstem bronchus is no longer identifiable. In the remainder the examination no new lung nodule. No adenopathy. The area of coarse reticular interstitial lung opacity with small areas of groundglass density in the extreme anterior left upper lobe is unchanged. No significant abnormality of the bony thorax. CT/CT chest wo con [id number] IMPRESSION: Stable right lung nodule. Left mainstem bronchus abnormality previously demonst rated no longer identifiable. 6-month follow-up and then yearly follow-up with no interval change.
== END 2025-06-11 09:27 | disposition home or self-care (01) ==
LOC: RAD 09:27
PROVIDERS: PCP Family Medicine; Visit Provider Family Medicine
DX: R91.1 Solitary pulmonary nodule (principal)
CPT/HCPCS: 71250

== ENCOUNTER 2025-08-30 03:13 | Emergency (ER) | payer MEDICARE, BC, SELFPAY ==
[2025-08-30] VITALS (7 sets, daily range): BP systolic 153–203; BP diastolic 88–117; PULSE 85–88; RESP 17–20; TEMP 36.6; O2SAT 91–94; BMI 17.7
--- OUTSIDE RECORDS SUMMARY | 2025-08-30 03:21 | XMS_ITS | Clinical Summary ---
Author Organization [facility] Address [address] [place] [id number] Care Team Providers Care Pathology Transcriptionist Name Role Phone Unavailable Primary Care Provider Unavailabl e Social History Tobacco Use Types Packs/Day Years Used Date Smoking Tobacco: Never Assessed Comments Unknown Sex and Gender Information Value Date Recorded Sex Assigned at Not on file Legal Sex Female 7:39 PM CDT Gender Identity Not on file Sexual Orientation Not on file Plan of Treatment Health Maintenance Due Date Last Done Comments COLONOSCOPY 1954 CT Colonography 1954 Colorectal Cancer Screening 1954 FIT DNA 1954 FIT 1954 Hepatitis C Screening 1954 Mammogram 1954 SIGMOIDOSCOPY 1954 Depression Screening 1972 TDAP/DTaP/TD Vaccines (1 - Tdap) 1973 Pneumococcal Vaccine 50+ (1 of 1 - PCV) 2004 Zoster Vaccine (1 of 2) 2004 Lipid Panel 03/08/2016 03/08/2011 DXA Scan 2019 Annual Wellness Exam 09/25/2024 COVID-19 Vaccine (1 - 2023-2 5 season) 2025 Influenza Series (#1) 2025 Respiratory Syncytial Virus (RSV) Immunization - pts and pts aged 60 yrs+ (1 - 1-dose 75+ series) 2029 Hepatitis B Vaccine Aged Out No longe r eligible based on patient's age to complete this topic Meningococcal B Vaccine Aged Out No l onger eligible based on patient's age to complete this topic Procedures Procedure Name Priority Date/Time Associated Diagnosis Comments LIPID PANEL Routine 03/08/2011 from Last 3 Months or Most Recently Relevant to Health Maintenance Results * Lipid panel (CHOL, TRIG, HDL, LDL) (03/08/2011) WebChart Result Results for this test must be viewed in WebChart [facility] 03/08/2011 us Provider Interface LAB BLOOD ORDERABLES Final Re sult [facility] from Last 3 Months or Most Recently Relevant to Health Maintenance
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
[2025-08-30] MEDS: ondansetron 2 mg/ML SDV 2 mL 4 MG IVP ×2 (03:46→06:13)
[2025-08-30] MEDS: HYDROmorphone 0.5 MG/0.5 ML INJ 1 MG IVP (03:46)
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
[2025-08-30] MEDS: labetalol 5 mg/mL SDV 20mL 20 MG IVP (04:22)
[2025-08-30] MEDS: iohexol 350 mg/mL 500 mL Btl (per mL) IV (04:22)
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
[2025-08-30 04:39] LABS: Hematocrit 34.9 % (36-47); Hemoglobin 10.80 g/dL (11.27-16.99); Mean Corpuscular HGB Conc 30.9 g/dL (30-55); Mean Corpuscular Hemoglobin 27.4 pg (27-33); Mean Corpuscular Volume 88.6 fl (85-98); Nucleated Red Blood Cells % 0 %; Platelet Count 275 10^3/cmm (157-399); Red Blood Count 3.94 10^6/uL (3.85-5.65); White Blood Count 9.17 10^3/uL (3.29-11.43)
[2025-08-30 04:56] LABS: Alanine Aminotransferase 13 U/L (0-33); Albumin Level 3.6 g/dL (3.5-5.2); Alkaline Phosphatase 79 U/L (35-105); Anion Gap 15.8 (5-19); Aspartate Amino Transferase 34 U/L (0-32); Blood Urea Nitrogen 16 mg/dL (8-23); Calcium 8.7 mg/dL (8.5-10.5); Carbon Dioxide 21 mmol/L (22-29); Chloride 99 mmol/L (98-107); Globulin 2.3 g/dL (1.3-4.6); Glucose 93 mg/dL (65-115); Osmolality Calculated 273 mOsm/kg (285-295); Potassium 4.8 mmol/L (3.5-5.1); Sodium 131 mmol/L (136-145); Total Protein 5.9 g/dL (6.6-8.7)
--- NOTE | 2025-08-30 04:58 | ECG_ITS ---
[facility] [place] [facility] Date: 2025-08-30 Pat Name: Lluvia Pagan Department: Room: Gender: Female Fire Manager: : 1955 Requested By: Stephon Cottrell Order Number: [id number] Dee Dee MD: KELSIE NGUYEN Measurements Intervals [place] Rate: 80 P: 100 KS: 180 QRS: 130 QRSD: 89 T: 137 QT: 365 QTc: 422 Interpretive Statements SINUS RHYTHM ARM LEADS REVERSED [INVERTED P AND QRS IN I] Compared to ECG 10/19/2022 12:03:02 No significant changes Electronically Signed On 08-30-2025 18:38:54 [place] PARAPROFESSIONAL by KELSIE NGUYEN [email or web address]
[2025-08-30] MEDS: metoprolol tartrate 1 mg/1 mL SDV 5 mL 5 MG IVP (06:12)
[2025-08-30] MEDS: oxyCODONE-APAP 5-325 mg Tablet 1 TAB PO (06:12)
[2025-08-30] MEDS: morphine 4 mg/mL SDV 1 mL IVP (06:32)
== END 2025-08-30 06:43 | disposition home or self-care (01) ==
PROVIDERS: Emergency Provider Emergency Medicine; PCP Family Medicine
DX: S00.03XA Contusion of scalp, initial encounter (principal); S12.191A Other nondisplaced fracture of second cervical vertebra, initial encounter for closed fracture; Z87.891 Personal history of nicotine dependence; I25.10 Atherosclerotic heart disease of native coronary artery without angina pectoris; I10 Essential (primary) hypertension; V47.5XXA Car driver injured in collision with fixed or stationary object in traffic accident, initial encounter
CPT/HCPCS: 70450; 70486; 71260; 72125; 74177; 80053; 85025; 93005; 96374; 96375; 96376; 99285; J1171; J2270; J2405; J3490; J9999